=== PATIENT | female | born 1940 | race Two or more races ===

== ENCOUNTER → 2023-09-24 | Outpatient (CLI) | payer OTHER ==
[2023-09-24 09:52] LABS: Basophils # (auto) 0.1 10 ^3/uL (0-0.2); Basophils % (auto) 0.9 % (0.0-2.0); Eosinophils # (auto) 0.1 10 ^3/uL (0-0.8); Eosinophils % (auto) 2.2 % (0.0-7.0); Hematocrit 43.5 % (36.0-46.0); Hemoglobin 14.2 g/dL (12.2-16.2); Lymphocytes # (auto) 1.9 10 ^3/uL (0.4-5.4); Lymphocytes % (auto) 32.8 % (10.0-50.0); Mean Corpuscular Hemoglobin 29.3 pg (28.0-32.0); Mean Corpuscular Hgb Conc. 32.7 g/dL (32.0-36.0); Mean Corpuscular Volume 89.5 fL (80.0-100.0); Monocytes # (auto) 0.6 10 ^3/uL (0-1.3); Monocytes % (auto) 9.6 % (0.0-12.0); Neutrophils # (auto) 3.2 10 ^3/uL (1.6-8.6); Neutrophils % (auto) 54.5 % (37.0-80.0); Nucleated Red Blood Cells % 0.1 %; Red Blood Cells 4.86 10^6/uL (4.0-5.20); Red Cell Distribution Width 14.4 % (11.8-14.3); White Blood Cell 5.9 10^3/uL (4.4-10.8)
[2023-09-24 09:58] LABS: Urine Bacteria FEW /hpf (None Seen); Urine Blood Negative /uL (Negative); Urine Clarity Clear (Clear); Urine Color Light-Yellow (Yellow); Urine Protein, UAD Negative (Negative); Urine Specific Gravity 1.011 (1.001-1.035); Urine Urobilinogen Normal (Negative); Urine WBC 8 /hpf (0 - 5)
[2023-09-24 10:13] LABS: Alanine Aminotransferase 21 U/L (7-40); Albumin 4.4 g/dL (3.2-4.8); Alkaline Phosphatase 94 U/L (46-116); Anion Gap 8 (5-15); Aspartate Aminotransferase 17 U/L (13-40); BUN/Creatinine Ratio 22.7 (10.0-20.0); Blood Urea Nitrogen 17 mg/dL (9-23); Calcium 9.8 mg/dL (8.5-10.1); Carbon Dioxide 25 mmol/L (20-30); Chloride 110 mmol/L (98-107); Glucose 113 mg/dL (74-106); LDL Cholesterol 85 mg/dL (< 100); Potassium 4.3 mmol/L (3.5-5.1); Sodium 143 mmol/L (136-145); Triglycerides 132 mg/dL (< 150)
[2023-09-24 10:14] LABS: Bilirubin, Total 0.5 mg/dL (0.2-1.0); Cholesterol 158 mg/dL (< 200); HDL Cholesterol 52 mg/dL (40-59); Total Protein 7.2 g/dL (5.7-8.2)
[2023-09-24 11:01] LABS: Uric Acid 3.8 mg/dL (3.1-7.8)
[2023-09-24 12:17] LABS: Folate (Folic Acid) 21.1 ng/mL (>5.38)
== END | disposition home or self-care (01) ==
LOC: LAB 09:22
PROVIDERS: ATTEND Internal Medicine
DX: E79.0 Hyperuricemia without signs of inflammatory arthritis and tophaceous disease (principal); D51.9 Vitamin B12 deficiency anemia, unspecified; R82.90 Unspecified abnormal findings in urine; E55.9 Vitamin D deficiency, unspecified; R94.6 Abnormal results of thyroid function studies; R68.89 Other general symptoms and signs; E61.2 Magnesium deficiency; E78.5 Hyperlipidemia, unspecified
CPT/HCPCS: 36415; 80053; 80061; 81001; 82306; 82607; 82746; 83036; 83735; 84443; 84550; 85025; 87086

== ENCOUNTER → 2023-10-10 | Outpatient (CLI) | payer OTHER | END | disposition home or self-care (01) | LOC: XYW 09:28 | PROVIDERS: ATTEND Podiatrist | DX: I77.9 Disorder of arteries and arterioles, unspecified (principal) | CPT/HCPCS: 93925 ==

== ENCOUNTER → 2023-11-07 | Outpatient (CLI) | payer OTHER ==
[2023-11-07 10:45] LABS: Alanine Aminotransferase 22 U/L (7-40); Albumin 4.3 g/dL (3.2-4.8); Alkaline Phosphatase 83 U/L (46-116); Anion Gap 6 (5-15); Aspartate Aminotransferase 16 U/L (13-40); BUN/Creatinine Ratio 20.5 (10.0-20.0); Blood Urea Nitrogen 16 mg/dL (9-23); Calcium 9.9 mg/dL (8.5-10.1); Carbon Dioxide 27 mmol/L (20-30); Chloride 111 mmol/L (98-107); Glucose 133 mg/dL (74-106); Potassium 4.2 mmol/L (3.5-5.1); Sodium 144 mmol/L (136-145)
[2023-11-07 10:46] LABS: Bilirubin, Direct 0.2 mg/dL (<0.3); Bilirubin, Total 0.5 mg/dL (0.2-1.0)
== END | disposition home or self-care (01) ==
LOC: LAB 09:55
PROVIDERS: ATTEND Internal Medicine
DX: E11.65 Type 2 diabetes mellitus with hyperglycemia (principal); R79.89 Other specified abnormal findings of blood chemistry; D51.9 Vitamin B12 deficiency anemia, unspecified; E11.43 Type 2 diabetes mellitus with diabetic autonomic (poly)neuropathy
CPT/HCPCS: 36415; 80048; 80076; 82043; 83036

== ENCOUNTER → 2023-11-14 | Outpatient (CLI) | payer OTHER ==
[2023-11-14 13:24] LABS: Creatinine, Urine 44.61 mg/dL (30.0-125.0)
[2023-11-14 13:51] LABS: Body Surface Area 1.6
[2023-11-14 14:06] LABS: Creatinine Clearance, Urine 53.5 mL/min (75-115)
== END | disposition home or self-care (01) ==
LOC: LAB 12:40
PROVIDERS: ATTEND Internal Medicine
DX: E11.65 Type 2 diabetes mellitus with hyperglycemia (principal); R79.89 Other specified abnormal findings of blood chemistry; D51.9 Vitamin B12 deficiency anemia, unspecified; E11.43 Type 2 diabetes mellitus with diabetic autonomic (poly)neuropathy
CPT/HCPCS: 82575

== ENCOUNTER → 2023-12-03 | Outpatient (CLI) | payer OTHER ==
[2023-12-03 09:22] LABS: Basophils # (auto) 0.1 10 ^3/uL (0-0.2); Eosinophils # (auto) 0.2 10 ^3/uL (0-0.8); Eosinophils % (auto) 2.5 % (0.0-7.0); Hematocrit 41.4 % (36.0-46.0); Lymphocytes # (auto) 2.2 10 ^3/uL (0.4-5.4); Lymphocytes % (auto) 31.4 % (10.0-50.0); Mean Corpuscular Hemoglobin 29.9 pg (28.0-32.0); Mean Corpuscular Hgb Conc. 33.9 g/dL (32.0-36.0); Mean Corpuscular Volume 88.4 fL (80.0-100.0); Monocytes # (auto) 0.6 10 ^3/uL (0-1.3); Neutrophils # (auto) 3.8 10 ^3/uL (1.6-8.6); Neutrophils % (auto) 56.1 % (37.0-80.0); Nucleated Red Blood Cells % 0.1 %; Red Blood Cells 4.68 10^6/uL (4.0-5.20); Red Cell Distribution Width 15.2 % (11.8-14.3); White Blood Cell 6.9 10^3/uL (4.4-10.8)
[2023-12-03 09:24] LABS: Urine Bacteria MANY /hpf (None Seen); Urine Blood Negative /uL (Negative); Urine Clarity Turbid (Clear); Urine Color Light-Yellow (Yellow); Urine Hyaline Cast FEW /lpf (0 - 2); Urine Protein, UAD Negative (Negative); Urine Specific Gravity 1.018 (1.001-1.035); Urine Urobilinogen Normal (Negative); Urine WBC 47 /hpf (0 - 5); Urine pH 5.5 (5.0-9.0)
[2023-12-03 10:18] LABS: Alanine Aminotransferase 21 U/L (7-40); Albumin 4.4 g/dL (3.2-4.8); Alkaline Phosphatase 104 U/L (46-116); Anion Gap 7 (5-15); Aspartate Aminotransferase 15 U/L (13-40); BUN/Creatinine Ratio 30.1 (10.0-20.0); Blood Urea Nitrogen 22 mg/dL (9-23); Calcium 10.1 mg/dL (8.5-10.1); Carbon Dioxide 23 mmol/L (20-30); Chloride 110 mmol/L (98-107); Cholesterol 162 mg/dL (< 200); Glucose 137 mg/dL (74-106); HDL Cholesterol 44 mg/dL (40-59); LDL Cholesterol 87 mg/dL (< 100); Magnesium 1.7 mg/dL (1.6-2.6); Potassium 3.8 mmol/L (3.5-5.1); Sodium 140 mmol/L (136-145); Triglycerides 180 mg/dL (< 150)
[2023-12-03 10:19] LABS: Bilirubin, Total 0.4 mg/dL (0.2-1.0); Total Protein 6.8 g/dL (5.7-8.2)
[2023-12-03 10:56] LABS: Uric Acid 3.7 mg/dL (3.1-7.8)
[2023-12-03 11:22] LABS: Folate (Folic Acid) 11.81 ng/mL (>5.38)
== END | disposition home or self-care (01) ==
LOC: LAB 08:54
PROVIDERS: ATTEND Internal Medicine
DX: R79.89 Other specified abnormal findings of blood chemistry (principal); R73.09 Other abnormal glucose; E61.2 Magnesium deficiency; R68.89 Other general symptoms and signs; R94.6 Abnormal results of thyroid function studies; E55.9 Vitamin D deficiency, unspecified; R82.79 Other abnormal findings on microbiological examination of urine; R82.90 Unspecified abnormal findings in urine; D51.9 Vitamin B12 deficiency anemia, unspecified
CPT/HCPCS: 36415; 80053; 80061; 81001; 82306; 82607; 82746; 83036; 83735; 84443; 84550; 85025; 87086

== ENCOUNTER → 2024-03-02 | Outpatient (CLI) | payer OTHER ==
[2024-03-02 09:09] LABS: Basophils # (auto) 0.1 10 ^3/uL (0-0.2); Basophils % (auto) 0.9 % (0.0-2.0); Eosinophils # (auto) 0.2 10 ^3/uL (0-0.8); Eosinophils % (auto) 2.8 % (0.0-7.0); Hemoglobin 14.2 g/dL (12.2-16.2); Lymphocytes % (auto) 31.7 % (10.0-50.0); Mean Corpuscular Hemoglobin 30.1 pg (28.0-32.0); Mean Corpuscular Hgb Conc. 33.7 g/dL (32.0-36.0); Mean Corpuscular Volume 89.4 fL (80.0-100.0); Monocytes # (auto) 0.6 10 ^3/uL (0-1.3); Monocytes % (auto) 9.1 % (0.0-12.0); Neutrophils # (auto) 3.6 10 ^3/uL (1.6-8.6); Neutrophils % (auto) 55.5 % (37.0-80.0); Nucleated Red Blood Cells % 0.1 %; Platelet Count (auto) 155 10^3/uL (140-450); Red Cell Distribution Width 15.1 % (11.8-14.3); White Blood Cell 6.4 10^3/uL (4.4-10.8)
[2024-03-02 09:47] LABS: Urine Bacteria FEW /hpf (None Seen); Urine Blood Negative /uL (Negative); Urine Clarity Clear (Clear); Urine Color Colorless (Yellow); Urine Protein, UAD Negative (Negative); Urine Specific Gravity 1.008 (1.001-1.035); Urine Urobilinogen Normal (Negative); Urine WBC 10 /hpf (0 - 5); Urine pH 5.5 (5.0-9.0)
[2024-03-02 10:14] LABS: Alanine Aminotransferase 20 U/L (7-40); Albumin 4.5 g/dL (3.2-4.8); Alkaline Phosphatase 98 U/L (46-116); Anion Gap 7 (5-15); Aspartate Aminotransferase 15 U/L (13-40); Bilirubin, Total 0.4 mg/dL (0.2-1.0); Blood Urea Nitrogen 15 mg/dL (9-23); Calcium 10.2 mg/dL (8.7-10.4); Carbon Dioxide 25 mmol/L (20-31); Chloride 110 mmol/L (98-107); Cholesterol 149 mg/dL (< 200); Glucose 141 mg/dL (74-106); HDL Cholesterol 45 mg/dL (40-59); LDL Cholesterol 69 mg/dL (< 100); Magnesium 1.9 mg/dL (1.6-2.6); Potassium 4.2 mmol/L (3.5-5.1); Sodium 142 mmol/L (136-145); Total Protein 7.2 g/dL (5.7-8.2); Triglycerides 194 mg/dL (< 150)
[2024-03-02 10:36] LABS: Uric Acid 4.1 mg/dL (3.1-7.8)
[2024-03-02 11:24] LABS: Folate (Folic Acid) 20.97 ng/mL (>5.38)
== END | disposition home or self-care (01) ==
LOC: LAB 08:43
PROVIDERS: ATTEND Internal Medicine
DX: I10 Essential (primary) hypertension (principal); E11.9 Type 2 diabetes mellitus without complications; E78.2 Mixed hyperlipidemia; Z68.41 Body mass index [BMI] 40.0-44.9, adult
CPT/HCPCS: 36415; 80053; 80061; 81001; 82306; 82607; 82746; 83036; 83735; 84443; 84550; 85025; 87086

== ENCOUNTER → 2024-04-10 | Outpatient (CLI) | payer OTHER | END | disposition home or self-care (01) | LOC: LAB 11:25 | PROVIDERS: ATTEND Psychiatry & Neurology Neurology | DX: G61.81 Chronic inflammatory demyelinating polyneuritis (principal) | CPT/HCPCS: 84155; 84165 ==

== ENCOUNTER → 2024-06-01 | Outpatient (CLI) | payer OTHER ==
[2024-06-01 09:56] LABS: Basophils # (auto) 0 10 ^3/uL (0-0.2); Basophils % (auto) 0.8 % (0.0-2.0); Eosinophils # (auto) 0.1 10 ^3/uL (0-0.8); Eosinophils % (auto) 1.9 % (0.0-7.0); Hematocrit 41.6 % (36.0-46.0); Lymphocytes # (auto) 1.6 10 ^3/uL (0.4-5.4); Lymphocytes % (auto) 32.1 % (10.0-50.0); Mean Corpuscular Hemoglobin 29.5 pg (28.0-32.0); Mean Corpuscular Hgb Conc. 33.6 g/dL (32.0-36.0); Mean Corpuscular Volume 87.8 fL (80.0-100.0); Monocytes # (auto) 0.5 10 ^3/uL (0-1.3); Neutrophils # (auto) 2.8 10 ^3/uL (1.6-8.6); Neutrophils % (auto) 56.2 % (37.0-80.0); Nucleated Red Blood Cells % 0.2 %; Platelet Count (auto) 147 10^3/uL (140-450); Red Blood Cells 4.74 10^6/uL (4.0-5.20); Red Cell Distribution Width 15.6 % (11.8-14.3)
[2024-06-01 10:31] LABS: Alanine Aminotransferase 26 U/L (7-40); Alkaline Phosphatase 98 U/L (46-116); Anion Gap 10 (5-15); Blood Urea Nitrogen 18 mg/dL (9-23); Carbon Dioxide 25 mmol/L (20-31); Potassium 4.5 mmol/L (3.5-5.1); Sodium 144 mmol/L (136-145); Triglycerides 130 mg/dL (< 150)
[2024-06-01 10:32] LABS: LDL Cholesterol 81 mg/dL (< 100)
[2024-06-01 10:33] LABS: Albumin 4.4 g/dL (3.2-4.8); Aspartate Aminotransferase 20 U/L (13-40); Bilirubin, Total 0.4 mg/dL (0.2-1.0); Cholesterol 153 mg/dL (< 200); HDL Cholesterol 53 mg/dL (40-59); Total Protein 7.2 g/dL (5.7-8.2)
[2024-06-01 10:59] LABS: Calcium 10.6 mg/dL (8.7-10.4); Chloride 109 mmol/L (98-107); Glucose 151 mg/dL (74-106)
[2024-06-01 11:06] LABS: Urine Bacteria FEW /hpf (None Seen); Urine Blood Negative /uL (Negative); Urine Clarity Turbid (Clear); Urine Color Light-Yellow (Yellow); Urine Protein, UAD Negative (Negative); Urine Squamous Epithelial Cell FEW /hpf (<5); Urine Urobilinogen Normal (Negative); Urine WBC 8 /hpf (0 - 5); Urine pH 5.5 (5.0-9.0)
[2024-06-01 11:24] LABS: Folate (Folic Acid) 14.03 ng/mL (>5.38)
[2024-06-01 11:35] LABS: Uric Acid 3.9 mg/dL (3.1-7.8)
== END | disposition home or self-care (01) ==
LOC: LAB 08:57
PROVIDERS: ATTEND Internal Medicine
DX: E79.0 Hyperuricemia without signs of inflammatory arthritis and tophaceous disease (principal); E61.2 Magnesium deficiency; R94.6 Abnormal results of thyroid function studies; D51.9 Vitamin B12 deficiency anemia, unspecified; E55.9 Vitamin D deficiency, unspecified; R82.998 Other abnormal findings in urine; R82.79 Other abnormal findings on microbiological examination of urine
CPT/HCPCS: 36415; 80053; 80061; 81001; 82306; 82607; 82746; 83036; 84443; 84550; 85025; 87086

== ENCOUNTER → 2024-08-25 | Outpatient (CLI) | payer OTHER ==
[2024-08-25 14:19] LABS: Basophils # (auto) 0 10 ^3/uL (0-0.2); Basophils % (auto) 0.6 % (0.0-2.0); Eosinophils # (auto) 0.2 10 ^3/uL (0-0.8); Eosinophils % (auto) 2.8 % (0.0-7.0); Hematocrit 42.5 % (36.0-46.0); Hemoglobin 14.3 g/dL (12.2-16.2); Lymphocytes # (auto) 1.9 10 ^3/uL (0.4-5.4); Lymphocytes % (auto) 28.3 % (10.0-50.0); Mean Corpuscular Hemoglobin 29.6 pg (28.0-32.0); Mean Corpuscular Hgb Conc. 33.6 g/dL (32.0-36.0); Mean Corpuscular Volume 88.2 fL (80.0-100.0); Monocytes # (auto) 0.6 10 ^3/uL (0-1.3); Monocytes % (auto) 8.9 % (0.0-12.0); Neutrophils % (auto) 59.4 % (37.0-80.0); Platelet Count (auto) 155 10^3/uL (140-450); Red Blood Cells 4.82 10^6/uL (4.0-5.20); Red Cell Distribution Width 15.4 % (11.8-14.3); White Blood Cell 6.8 10^3/uL (4.4-10.8)
[2024-08-25 14:35] LABS: Partial Thromboplastin Time 27.6 SEC (24.5-34.5); Prothrombin Time 10.6 sec (9.3-11.8)
[2024-08-25 14:56] LABS: Alanine Aminotransferase 29 U/L (7-40); Alkaline Phosphatase 92 U/L (46-116); Anion Gap 10 (5-15); Aspartate Aminotransferase 22 U/L (13-40); Blood Urea Nitrogen 20 mg/dL (9-23); Calcium 10.1 mg/dL (8.7-10.4); Carbon Dioxide 25 mmol/L (20-31); Potassium 4.3 mmol/L (3.5-5.1); Sodium 143 mmol/L (136-145); Total Protein 7.6 g/dL (5.7-8.2)
[2024-08-25 14:57] LABS: Albumin 4.7 g/dL (3.2-4.8); Bilirubin, Total 0.4 mg/dL (0.2-1.0)
[2024-08-25 15:02] LABS: Chloride 108 mmol/L (98-107); Glucose 153 mg/dL (74-106)
--- NOTE | 2024-08-26 16:07 | DVHOP2 ---
Operative Report - 2 Report Details Date: 08/26/24 Preop Diagnosis: Carotid stenosis /TIAs Postop Diagnosis: Successful stenting of right internal carotid artery Surgeon: Juliana Short MD Anesthesiologist: Conscious sedation Anesthesia: Mac, Local ( lidocaine given for insertion sheath. Fentanyl administered) Implant: Carotid stent. Consent: The patient was informed of the risks and benefits of the procedure. These include but are not limited to complications of anesthesia, postoperative infection, incomplete relief of symptoms, recurrence of symptoms, damage to blood vessels, nerves and tendons, deep venous thrombosis, pulmonary embolism and possible need for repeat surgery in the future. Complications: No complications Estimated Blood Loss: 10 cc Findings: Right internal carotid stent of 70% Indications for Surgery: TIAs carotid stenosis Name of Procedure Performed Carotid stenting and angiography Procedure Details Procedure Details: Prior local anesthesia with 2% lidocaine to the right groin and full informed consent obtained the patient was prepped and draped in usual fashion followed by placement of a six [place] sheath into the femoral artery and angiographic eval uation of bilateral carotid arteries with a six [place] JR4. After delineating the anatomy Which consistent with a 70% stenosis of the right internal carotid artery just at the bifurcation,we switched to a eight [place] sheath and an eight [place] multipurpose guide. We then placed a Emboshield into the right internal carotid artery and pre-dilated with a 5 mm Luxul Technologytr[employer] balloon. We then placed a Xact stent into the right internal carotid. this was a nine/7 mm x 30 mm in length. On post dilated with a 5 mm Balloon. This was at five atmospheres. Patient remained hemodynamically stable. Carotid anatomy revealed a 70% stenosis of the right internal carotid. The left carotid has been stented without in stent restenosis. Aortic blood pressure was 130/70. 5 mg of Lopressor instituted keep pressure doubt. Robinul was not required. impression: Successful stenting of the right internal carotid artery as noted. Recommendations continue with dual antiplatelet therapy. Lipid-lowering therapy. Blood pressure control. we will keep overnight for observation.Follow up As an outpatient in 4-10 days. Condition Good Disposition Still a Patient Date of Service: Aug 26, 2024 Billing Provider: JULIANA SHORT Sr., MD Cardiology Common Codes: 53886-VFXQVVF INP/OBS CARE (High) Peripheral Procedures Codes: 66854-CAZVA PLACMNT W/ANGIOPLASTY ( bilateral carotid angiography. Cerebral angiography. Right internal carotid artery stenting.) JULIANA SHORT Sr., MD Aug 26, 2024 16:07
== END | disposition home or self-care (01) ==
LOC: LAB 13:49
PROVIDERS: ATTEND Internal Medicine
DX: Z01.812 Encounter for preprocedural laboratory examination (principal); I65.29 Occlusion and stenosis of unspecified carotid artery
CPT/HCPCS: 36415; 80053; 85025; 85610; 85730

== ENCOUNTER → 2024-10-12 | Outpatient (CLI) | payer OTHER ==
[2024-10-12 10:06] LABS: Basophils # (auto) 0 10 ^3/uL (0-0.2); Basophils % (auto) 0.5 % (0.0-2.0); Eosinophils # (auto) 0.1 10 ^3/uL (0-0.8); Eosinophils % (auto) 2.1 % (0.0-7.0); Hematocrit 40.5 % (36.0-46.0); Hemoglobin 13.4 g/dL (12.2-16.2); Lymphocytes # (auto) 1.4 10 ^3/uL (0.4-5.4); Lymphocytes % (auto) 21.8 % (10.0-50.0); Mean Corpuscular Hemoglobin 28.7 pg (28.0-32.0); Mean Corpuscular Hgb Conc. 33.2 g/dL (32.0-36.0); Mean Corpuscular Volume 86.4 fL (80.0-100.0); Monocytes # (auto) 0.6 10 ^3/uL (0-1.3); Monocytes % (auto) 9.9 % (0.0-12.0); Neutrophils # (auto) 4.3 10 ^3/uL (1.6-8.6); Neutrophils % (auto) 65.7 % (37.0-80.0); Nucleated Red Blood Cells % 0.1 %; Platelet Count (auto) 148 10^3/uL (140-450); Red Blood Cells 4.69 10^6/uL (4.0-5.20); Red Cell Distribution Width 14.9 % (11.8-14.3); White Blood Cell 6.5 10^3/uL (4.4-10.8)
[2024-10-12 10:26] LABS: Alanine Aminotransferase 16 U/L (7-40); Albumin 4.3 g/dL (3.2-4.8); Alkaline Phosphatase 91 U/L (46-116); Anion Gap 8 (5-15); Aspartate Aminotransferase 15 U/L (13-40); BUN/Creatinine Ratio 20.5 (10.0-20.0); Blood Urea Nitrogen 18 mg/dL (9-23); Calcium 9.9 mg/dL (8.7-10.4); Carbon Dioxide 27 mmol/L (20-31); Chloride 106 mmol/L (98-107); LDL Cholesterol 75 mg/dL (< 100); Potassium 4.5 mmol/L (3.5-5.1); Sodium 141 mmol/L (136-145); Total Protein 6.9 g/dL (5.7-8.2); Triglycerides 133 mg/dL (< 150)
[2024-10-12 10:27] LABS: Bilirubin, Total 0.4 mg/dL (0.2-1.0); Cholesterol 137 mg/dL (< 200); HDL Cholesterol 42 mg/dL (40-59)
[2024-10-12 10:29] LABS: Glucose 168 mg/dL (74-106)
[2024-10-12 10:52] LABS: Uric Acid 4.1 mg/dL (3.1-7.8)
[2024-10-12 11:05] LABS: Folate (Folic Acid) 17.77 ng/mL (>5.38)
== END | disposition home or self-care (01) ==
LOC: LAB 09:33
PROVIDERS: ATTEND Internal Medicine
DX: E61.2 Magnesium deficiency (principal); E55.9 Vitamin D deficiency, unspecified; D51.9 Vitamin B12 deficiency anemia, unspecified; E78.49 Other hyperlipidemia; E79.0 Hyperuricemia without signs of inflammatory arthritis and tophaceous disease; R94.6 Abnormal results of thyroid function studies; R82.79 Other abnormal findings on microbiological examination of urine; R82.998 Other abnormal findings in urine; R73.09 Other abnormal glucose; R68.89 Other general symptoms and signs; R82.90 Unspecified abnormal findings in urine
CPT/HCPCS: 36415; 80053; 80061; 82306; 82607; 82746; 83036; 84443; 84550; 85025; 87086

== ENCOUNTER 2024-11-16 09:26 | Outpatient (CLI) | payer OTHER | END 2024-11-16 17:00 | disposition home or self-care (01) | LOC: LAB 09:26 | PROVIDERS: ATTEND Internal Medicine | DX: E78.49 Other hyperlipidemia (principal); E61.2 Magnesium deficiency; E55.9 Vitamin D deficiency, unspecified; R73.09 Other abnormal glucose; R94.6 Abnormal results of thyroid function studies; E79.0 Hyperuricemia without signs of inflammatory arthritis and tophaceous disease; R82.90 Unspecified abnormal findings in urine; R68.89 Other general symptoms and signs; R82.998 Other abnormal findings in urine; D51.9 Vitamin B12 deficiency anemia, unspecified | CPT/HCPCS: 82306; 87086 ==

== ENCOUNTER 2024-12-08 09:06 | Outpatient (CLI) | payer OTHER ==
[~2024-12-08] VITALS: Ht 152.4 cm; Wt 63.5 kg
[~2024-12-08 09:06] MED LIST: CEPH250C PO
[2024-12-08] MEDS: REGADENOSON 0.4 MG/5 ML SYRG IV ONE ×2 (10:53→10:55)
--- NOTE | 2024-12-14 08:50 | DVHSR ---
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 HR Resting HR: 94 bpmMax Heart Rate (APMHR): 136.520901 bpm Max HR Achieved: 111 bpmTarget HR (85% APMHR): 115.599974 bpm % of APMHR: 81.62 Recovery HR: 100 bpm BP Resting BP: 146/69 mmHg Recovery BP: 132/56 mmHg ECG Resting ECG: Sinus Rhythm Clinical Reason for Termination: Completed protocol Stress ECG Conclusion lvef 70% normal perfusion scan no major ischemai noted NM EXAM: Myocardial Perfusion REST/STRESS Imaging Protocol: Rest Tc-99m/Stress Tc-99m 1 day Resting Data Rest SPECT myocardial perfusion imaging was performed in supine position 60 minutes following the int ravenous injection of 11.3 mCi of Tc-99m Sestamibi. Time of rest injection: 0930 Time of rest imagin Administration Route: IV Administration Site: Left Hand Pharmacologic Stress Pharmacologic stress test was performed by injecting Regadenoson 0.4 mg IV push followed by the intra venous injection of 33.1 mCi of Tc-99m Sestamibi. Time of stress injection: 1050 Time of stress imagin Administration Route: IV Administration Site: Left Hand Gated Stress SPECT was performed 65 minutes after stress injection. The images were gated to evaluate regional wall motion and calculate left ventricular ejection fracti on. Nuclear Conclusion lvef 70% normal perfusion scan no major ischemai noted
== END 2024-12-08 17:00 | disposition home or self-care (01) ==
LOC: XYW 09:06
PROVIDERS: ATTEND Internal Medicine
DX: R07.9 Chest pain, unspecified (principal)
CPT/HCPCS: 78452; 93017; A9500; J2785

== ENCOUNTER 2024-12-19 11:57 | Inpatient (IN) | payer OTHER ==
[~2024-12-19] VITALS: Ht 149.9 cm; Wt 61.5 kg
--- NOTE | 2024-12-19 12:04 | ED.PDOC ---
HPI Comments HPI: 84y F who presents to the ED via EMS for chief complaint of chest pain. - pt states she started to have chest pain at 0030 this AM and EMS was brought to [facility], - pt states the pain woke her from her sleep - pt states the pain was in her back, radiating to anterior between the chest, pressure like in nature, rating the pain 5/10, with associated exacerbating factor of pain with inspiration and no relieving factors - EMS gave pt nitro and ASA with mild relief prior to ED arrival - pt [facility] had work up with normal troponin and D- dimer and pt transferred to for insurance purposes and for chest pain work up - pt now in the ED, otherwise denies any other symptoms Past Medical history: B/L Carotid artery stenosis 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 Allergies: iodine and penicillins HPI: Poor Historian. Patient transferred for some [facility] for cardiac evaluation due to insurance. Chest pain started last night midsternal constant without associated symptoms. Her workup has been unremarkable of the other facility. D-dimer and troponins a re negative. Patient arrives to the ED with pain scale 5/10 REVIEW OF SYSTEMS: CONSTITUTIONAL: Denies acute: fever, diaphoresis, chills, HEAD: Denies acute: headache, photophobia Eyes: Denies acute: Double vision, vision loss, eye pain, eye discharge. EARS: Denies acute: tinnitus, hearing loss, ear discharge, ear pain, THROAT: Denies acute: sore throat, swelling, difficulty swallowing , pain with swallowing, change in voice. NECK: Denies acute: neck pain, neck swelling, stiff neck. HEART: Denies acute : , palpitations, LUNGS: Denies acute: SOB, wheezing, cough, hemoptysis ABDOMEN: Denies acute: abdominal pain, Nausea, Vomiting, diarrhea, melena , hematemesis, hematochezia SKIN: Denies acute: rash, redness, lesions, itchiness. EXTREMITIES: Denies acute: calf pain, numbness, tingling, weakness, denies pain in extremity. Denies acute: Low back pain. Neuro: Denies acute: focal neurological deficit, motor or sensory focal neurological deficit, tremors, seizure like activity, confusion, dizziness, change in mental status, loss of bowel or bladder function, cauda equina like symptoms. : Denies acute: dysuria, hematuria, flank pain, increase in urinary frequency. PSYCH: Denies acute: hallucination, suicidal ideation, homicidal ideation. FEMALE: Denies acute: abnormal vaginal bleeding, foul odor, unusual discharge. PHYSICAL EXAM: General: ------neit-eb-ujlaefia--acute distress, awake and alert. Head: normocephalic, atraumatic. Neck: supple, trachea is midline, no swelling. Throat: Normal phonation. Eyes:, no erythema, no purulent discharge, no proptosis, no icterus. Heart: regular rate, regular rhythm, no significant murmur appreciated. Lungs: no apparent respiratory distress, Able to speak in full sentences. No wheezing, no rhonchi, no crackles. No stridors Clear to auscultation bilaterally. Abdomen: non tender to palpation, non distended, soft, no guarding, no rebound, + bowel sounds. Neuro: Awake, Alert, oriented to name, self, situation, follows commands GCS=15. Speech is normal. Skin: no petechia, no purpura, no cyanosis, non-pale, not jaundice. Lower extremities: --trace bilateral - Pitting edema no deformity, no focal swelling, no calf TTP. Makes eye contact. moves all four extremities. Face: no apparent facial droop. ED COURSE: DISCLAIMER: This medical document was created using an electronic medical record system with voice recognition software and computerized dictation system. Although this document has been carefully reviewed, there might still be some phonetic and typographical errors. Occasional wrong-word or "sound-alike" substitutions may have occurred due to the inherent limitations of voice recognition software. These areas are purely typographical due to imperfections of the software programs and do not reflect any compromise in the patient's medical care. Please read the chart carefully and recognize, using context, where these substitutions have occurred. Time Seen by MD: 11:59 Reviewed Notes: Allergies Allergies: Coded Allergies: Iodine (Verified Allergy, Unknown, 12/19/24) Penicillins (Verified Allergy, Unknown, 12/19/24) Home Meds Active Scripts Cephalexin (KEFLEX CAPSULE) 250 Mg Cp, 500 MG PO BID for 10 Days, #20 CAP Prov:ANGEL GUTIERREZ RESIDENT 08/27/24 Information Source: Patient, Emergency Med Personnel Mode of Arrival: EMS Was a procedure done? Was a procedure done?: No CP Differential Dx Differential Diagnosis: N/A Differential Diagnosis: Other (Ddx include but not limitied to gastritis, musculoskeletal pain, radiculopathy, atypical chest pain, dissection, aneurysm, ACS, unstable angina, hiatal hernia, GERD, anxiety, costochondritis, PE, pneumothroax, neoplasm, cardiac ischemia, drug abuse, anemia.) X-Ray, Labs, Meds, VS Vital Signs Date Time Temp Pulse Resp B/P (MAP) Pulse Ox O2 Delivery O2 Flow Rate FiO2 12/19/24 13:43 67 12/19/24 12:56 99.0 69 17 166/65 (98) 95 99.0 12/19/24 12:56 69 17 95 Room Air 12/19/24 11:58 98.0 72 16 132/52 (78) 97 98.0 Lab Test 12/19/24 13:23 12/19/24 12:23 Range/Units Troponin I High Sensitivity 6 5 </=34 ng/L White Blood Count 6.0 4.4-10.8 10^3/uL Red Blood Count 4.55 4.0-5.20 10^6/uL Hemoglobin 12.8 12.2-16.2 g/dL Hematocrit 39.1 36.0-46.0 % Mean Corpuscular Volume 85.9 80.0-100.0 fL Mean Corpuscular Hemoglobin 28.2 28.0-32.0 pg Mean Corpuscular Hemoglobin Concent 32.8 32.0-36.0 g/dL Red Cell Distribution Width 15.6 H 11.8-14.3 % Platelet Count 142 140-450 10^3/uL Mean Platelet Volume 9.3 6.9-10.8 fL Neutrophils (%) (Auto) 69.9 37.0-80.0 % Lymphocytes (%) (Auto) 19.1 10.0-50.0 % Monocytes (%) (Auto) 8.8 0.0-12.0 % Eosinophils (%) (Auto) 1.8 0.0-7.0 % Basophils (%) (Auto) 0.4 0.0-2.0 % Neutrophils # (Auto) 4.2 1.6-8.6 10 ^3/uL Lymphocytes # (Auto) 1.1 0.4-5.4 10 ^3/uL Monocytes # (Auto) 0.5 0-1.3 10 ^3/uL Eosinophils # (Auto) 0.1 0-0.8 10 ^3/uL Basophils # (Auto) 0 0-0.2 10 ^3/uL Nucleated Red Blood Cells 0.0 % Sodium Level 144 136-145 mmol/L Potassium Level 4.4 3.5-5.1 mmol/L Chloride Level 110 H 98-107 mmol/L Carbon Dioxide Level 26 20-31 mmol/L Anion Gap 8 5-15 Blood Urea Nitrogen 24 H 9-23 mg/dL Creatinine 0.75 0.550-1.02 mg/dL Glomerular Filtration Rate Calc 78 >90 mL/min BUN/Creatinine Ratio 32.0 H 10.0-20.0 Serum Glucose 151 H 74-106 mg/dL Calcium Level 9.5 8.7-10.4 mg/dL Total Bilirubin 0.9 0.2-1.0 mg/dL Aspartate Amino Transferase (AST) 1097 H 13-40 U/L Alanine Aminotransferase (ALT) 586 H 7-40 U/L Alkaline Phosphatase 188 H 46-116 U/L B-Type Natriuretic Peptide 39.26 0-100 pg/mL Total Protein 6.2 5.7-8.2 g/dL Albumin 4.2 3.2-4.8 g/dL Lipase 409 H 12-53 U/L Acetaminophen Level 5.0 L 10.0-20.0 UG/ML Hepatitis A IgM Antibody Pending Hepatitis B Surface Antigen Pending Hepatitis B Core IgM Antibody Pending Hepatitis C Antibody Pending [address] [address] Ph: [phone] DIAGNOSTIC IMAGING Diagnostic Imaging Report : [id number] Signed PATIENT: TAYLOR WALLS ACCT: [id number] UNIT: [id number] : 1940 LOC: ER ROOM / BED: / AGE / SEX: 84 / F ADM STATUS: REG ER SERVICE 1415 ORDERING PHYSICIAN: JUSTIN JULIAN DO PROCEDURE(s): ABPL - CT AB PEL WO CON-NO ORAL OR IV REASON: elevated LFT ORDER NUMBER(s): [id number], ACCESSION NUMBER(s): [id number] CT abdomen and pelvis without contrast INDICATION: elevated LFT TECHNIQUE: Serial axial images were performed through the abdomen and pelvis and then reformatted in the sagittal and coronal plane. All CT scans at this medical facility are performed using dose modulation techniques as appropriate to a perf ormed exam including the following: Automated exposure control was utilized; adjustment of the MA and/or KvP according to patient size; and use of iterative reconstruction technique. FINDINGS: Liver and spleen are normal in size without focal mass. No renal masses or hydronephrosis. There is a 1-2 mm stone in the right kidney. No masses or enlargement of the adrenal glands or pancreas. Gallbladder has been removed. There is dilatation of the common bile duct in the tim hepatis tapering to a normal diameter in the pancreatic head. No distention of bowel loops to suggest mechanical obstruction of bowel. The appendix is normal in a ppearance. No free fluid. Within the pelvis, bladder is smooth walled without stones. No abnormal masses or fluid collections. There is inflammatory change in the lower left anterior abdominal wall. There is vascular calcification in the verde of the aorta and iliac arteries. Degenerative changes are present in the spine. IMPRESSION: 1. No acute pathology in the abdomen or pelvis. 2. Note made that study is limited due to lack of IV oral contrast Computed Tomographic Radiation Dosimetry Report: Total CTDI vol = 7.75 mGy Total DLP = 362 mGy-cm Low dose protocols were performed. ATED BY: JANI SMITH MD DICTATED DATE/TIME: 12/19/241457 SIGNED BY: JANI SMITH MD SIGNED DATE/TIME: 12/19/241457 CC: [place] [id number] Ph: [phone] DIAGNOSTIC IMAGING Diagnostic Imaging Report : [id number] Signed PATIENT: TAYLOR WALLS ACCT: [id number] UNIT: [id number] : 1940 LOC: ER ROOM / BED: / AGE / SEX: 84 / F ADM STATUS: REG ER SERVICE 1201 ORDERING PHYSICIAN: JUSTIN JULIAN DO PROCEDURE(s): CXRP - CHEST PORTABLE REASON: CP ORDER NUMBER(s): [id number], ACCESSION NUMBER(s): [id number] CHEST RADIOGRAPH Indication: CP Technique: Single frontal view of the chest was obtained COMPARISON: None FINDINGS: Lines and Tubes: None Lungs: Clear Pleura: No effusion. No pneumothorax. Cardiomediastinal contours: Unremarkable Bones: Unremarkable IMPRESSION: No acute disease. ATED BY: DUSTY SANCHEZ MD DICTATED DATE/TIME: 12/19/241227 SIGNED BY: DUSTY SANCHEZ MD SIGNED DATE/TIME: 12/19/241227 CC: Time of 1ST Reevaluation: 00:00 Reevaluation 1ST: N/A Patient Education/Counseling: Diagnosis, Treatment Family Education/Counseling: No Family Present Comments MDM: patient presented with the above HPI.---chest pain---workup was initiated. patient was found with the above mentioned diagnosis. the following medications were ordered: please refer to order lists of meds and tests obtained by myself Dr. Julian. Patient ED course and VS have been stabilized. Patient has been reassessed in the ED and remained in a stable condition. Pertinent incidental findings were discussed with the patient and/or family. Patient/family voices understanding and is agreeable with plan. Patient has been observed in the ED adequate length of time to insure improvement/stability. Escalation of care considered: Consideration of escalation to observation or admission Our workup revealed that the etiology of her symptoms are GI in origin. Patient was found with elevated LFTs and acute pancreatitis. CT scan of the abdomen and pelvis was obtained. Patient was ADMITTED to the medicine team for further evaluation and treatment of their presentation. All the reports of any imaging studies that were ordered by myself were reviewed by myself. SEPSIS Sepsis Screen Physician Orders Collection Development Librarian (12/19/24 ) Chest Portable (12/19/24 12:01) Electrocardigram (12/19/24 13:01) Electrocardigram (12/19/24 15:01) Ct Ab Pel Wo Con-No Oral Or Iv (12/19/24 14:15) Vital Signs Date Time Temp Pulse Resp B/P (MAP) Pulse Ox O2 Delivery O2 Flow Rate FiO2 12/19/24 13:43 67 12/19/24 12:56 99.0 69 17 166/65 (98) 95 99.0 12/19/24 12:56 69 17 95 Room Air 12/19/24 11:58 98.0 72 16 132/52 (78) 97 98.0 Laboratory Tests Test 12/19/24 12:23 White Blood Count 6.0 10^3/uL (4.4-10.8) Departure 1 Departure Time of Disposition: 12:35 Impression: Primary Impression: Chest pain Additional Impressions: Elevated LFTs Acute pancreatitis Disposition: ADMITTED INPATIENT Admit to: Tele Condition: Guarded Discharged With: Self Critical Care Note Critical Care Time?: Yes (45 min-critical care time only) Heart Score Heart Score: Heart Score Response (Comments) Value History Moderate Suspicious 1 EKG Normal 0 Age >65 2 Risk Factors >3 or Hx ASHD 2 Troponin Normal limit 0 Total 5 I personally scribed for JUSTIN JULIAN DO ([email or web address]) on 12/19/24 at 12:04. Electronically submitted by Feli Saxena ([email or web address]). I personally scribed for JUSTIN JULIAN DO ([email or web address]) on 12/19/24 at 12:27. Electronically submitted by Feli Saxena ([email or web address]). I personally scribed for JUSTIN JULIAN DO ([email or web address]) on 12/19/24 at 13:21. Electronically submitted by Feli Saxena ([email or web address]). I personally scribed for JUSTIN JULIAN DO ([email or web address]) on 12/19/24 at 16:28. Electronically submitted by Feli Saxena ([email or web address]). I personally scribed for JUSTIN JULIAN DO ([email or web address]) on 12/19/24 at 18:01. Electronically submitted by Feli Saxena ([email or web address]). JUSTIN JULIAN DO Dec 19, 2024 12:04
--- NOTE | 2024-12-19 12:30 | DVH ---
CHEST RADIOGRAPH Indication: CP Technique: Single frontal view of the chest was obtained COMPARISON: None FINDINGS: Lines and Tubes: None Lungs: Clear Pleura: No effusion. No pneumothorax. Cardiomediastinal contours: Unremarkable Bones: Unremarkable IMPRESSION: No acute disease.
[2024-12-19 12:42] LABS: Hematocrit 39.1 % (36.0-46.0); Hemoglobin 12.8 g/dL (12.2-16.2); Mean Corpuscular Hemoglobin 28.2 pg (28.0-32.0); Mean Corpuscular Volume 85.9 fL (80.0-100.0); Nucleated Red Blood Cells % 0.0 %
[2024-12-19 12:55] LABS: Albumin 4.2 g/dL (3.2-4.8); Anion Gap 8 (5-15); BUN/Creatinine Ratio 32.0 (10.0-20.0); Bilirubin, Total 0.9 mg/dL (0.2-1.0); Calcium 9.5 mg/dL (8.7-10.4); Carbon Dioxide 26 mmol/L (20-31); Potassium 4.4 mmol/L (3.5-5.1); Sodium 144 mmol/L (136-145); Total Protein 6.2 g/dL (5.7-8.2)
[2024-12-19 12:56] LABS: Alanine Aminotransferase 586 U/L (7-40); Alkaline Phosphatase 188 U/L (46-116); Blood Urea Nitrogen 24 mg/dL (9-23); Chloride 110 mmol/L (98-107); Glucose 151 mg/dL (74-106)
[2024-12-19] MEDS: NITROGLYCERIN 0.4 MG SL TAB SL ONE (13:04)
--- NOTE | 2024-12-19 14:38 | DVHHP2 ---
History of Present Illness Reason for Visit: chest pain History of Present Illness 84-year-old female with past medical history of hypertension, anemia, diabetes, and recent cardiovascular intervention (GLASS MAKER/stenting of the internal carotid artery by Dr. 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 According to the patient, she was initially evaluated at [place] for chest pain where she was told everything was stable but was transferred to [facility] for evaluation by her wind farm engineer, Dr. Short. The chest pain is described as starting in the back and radiating to the front, associated with shortness of breath, but symptoms have improved since ED arrival. She states she saw Dr. Short approximately three weeks ago, at which time a stress test was performed, though she has not received the results. She denies caffeine use and states her energy and appetite have been reduced. On ED evaluation, CBC was unremarkable, troponins negative, but AST was elevated at 1097, ALT at 568, and total bilirubin at 0.9 . Comparison with labs from August 2024 shows liver enzymes were previously within normal limits. No known history of liver disease or hepatotoxic medication use. Workup for hepatic dysfunction is underway. will admit and hold lipitor and tylenol ordered gi and cards consult Past Medical History See HPI above Past Surgical History See HPI above Family History Reviewed, non-contributory to the management of this case. Past Social History The patient lives at home, denies smoking, alcohol or illicit drugs abuse. Review of Systems Constitutional: No: Fever, Chills, Sweats, Weakness, Malaise, Other Eyes: No: Pain, Vision change, Conjunctivae inflammation, Eyelid inflammation, Other, Redness ENT: No: Ear pain, Ear discharge, Nose pain, Nose discharge, Nose congestion, Mouth pain, Mouth swelling, Throat pain, Throat swelling, Other Respiratory: Shortness of breath; No: Cough, Dry, SOB with excertion, Wheezing, Hemoptysis, Pleuritic Pain, Sputum, Wheezing, Other Cardiovascular: Chest Pain; No: Palpitations, Orthopnea, Paroxysmal Noc. Dyspnea, Edema, Lt Headedness, Other Gastrointestinal: No: Nausea, Vomiting, Abdominal Pain, Diarrhea, Constipation, Melena, Hematochezia, Other Genitourinary: No Dysuria, No Frequency, No Incontinence, No Hematuria, No Retention, No Other Musculoskeletal: No: other, neck pain, shoulder pain, arm pain, back pain, hand pain, leg pain, foot pain Skin: No: Rash, Lesions, Jaundice, Bruising, Other Neurological: No: Weakness, Numbness, Incoordination, Change in speech, Confusion, Seizures, Other Allergies: Coded Allergies: Iodine (Verified Allergy, Unknown, 12/19/24) Penicillins (Verified Allergy, Unknown, 12/19/24) Exam Vital Signs Vital Signs Date Time Temp Pulse Resp B/P (MAP) Pulse Ox O2 Delivery O2 Flow Rate FiO2 12/19/24 13:43 67 12/19/24 12:56 99.0 17 166/65 (98) 95 99.0 12/19/24 12:56 Room Air General Appearance: Alert, Oriented X3, Cooperative, No acute distress HEENT: Atraumatic, PERRLA, EOMI, Mucous membr. moist/pink Respiratory: Clear to auscultation, Normal air movement Cardiovascular: Regular rate, Normal S1, Normal S2, No murmurs Abdominal: Normal bowel sounds, Soft, No tenderness, No hepatospenomegaly, No masses, Other (No jaundice seen) Extremities: No clubbing, No cyanosis, No edema, Normal pulses, No tenderness/ swelling Skin: No rashes, No breakdown, No significant lesion Neuro: Normal gait, Normal speech, Strength at 5/5 X4 ext, Normal tone, Sensation intact, Cranial nerves 3-12 NL Psych/Mental Status: Mental status NL, Mood NL Labs/Xrays Chest x-ray unremarkable I reviewed labs, imaging CT scan abdomen pelvis, EKG and all diagnostic studies on this patient from ED records and the medical chart Labs Test 12/19/24 13:23 12/19/24 12:23 Range/Units Troponin I High Sensitivity 6 </=34 ng/L White Blood Count 6.0 4.4-10.8 10^3/uL Red Blood Count 4.55 4.0-5.20 10^6/uL Hemoglobin 12.8 12.2-16.2 g/dL Hematocrit 39.1 36.0-46.0 % Mean Corpuscular Volume 85.9 80.0-100.0 fL Mean Corpuscular Hemoglobin 28.2 28.0-32.0 pg Mean Corpuscular Hemoglobin Concent 32.8 32.0-36.0 g/dL Red Cell Distribution Width 15.6 H 11.8-14.3 % Platelet Count 142 140-450 10^3/uL Mean Platelet Volume 9.3 6.9-10.8 fL Neutrophils (%) (Auto) 69.9 37.0-80.0 % Lymphocytes (%) (Auto) 19.1 10.0-50.0 % Monocytes (%) (Auto) 8.8 0.0-12.0 % Eosinophils (%) (Auto) 1.8 0.0-7.0 % Basophils (%) (Auto) 0.4 0.0-2.0 % Neutrophils # (Auto) 4.2 1.6-8.6 10 ^3/uL Lymphocytes # (Auto) 1.1 0.4-5.4 10 ^3/uL Monocytes # (Auto) 0.5 0-1.3 10 ^3/uL Eosinophils # (Auto) 0.1 0-0.8 10 ^3/uL Basophils # (Auto) 0 0-0.2 10 ^3/uL Nucleated Red Blood Cells 0.0 % Sodium Level 144 136-145 mmol/L Potassium Level 4.4 3.5-5.1 mmol/L Chloride Level 110 H 98-107 mmol/L Carbon Dioxide Level 26 20-31 mmol/L Anion Gap 8 5-15 Blood Urea Nitrogen 24 H 9-23 mg/dL Creatinine 0.75 0.550-1.02 mg/dL Glomerular Filtration Rate Calc 78 >90 mL/min BUN/Creatinine Ratio 32.0 H 10.0-20.0 Serum Glucose 151 H 74-106 mg/dL Calcium Level 9.5 8.7-10.4 mg/dL Total Bilirubin 0.9 0.2-1.0 mg/dL Aspartate Amino Transferase (AST) 1097 H 13-40 U/L Alanine Aminotransferase (ALT) 586 H 7-40 U/L Alkaline Phosphatase 188 H 46-116 U/L B-Type Natriuretic Peptide 39.26 0-100 pg/mL Total Protein 6.2 5.7-8.2 g/dL Albumin 4.2 3.2-4.8 g/dL Lipase 409 H 12-53 U/L SEPSIS Sepsis Screen Date sepsis recognized/suspect: Dec 19, 2024 Time Sepsis recognized/suspect: 1200 Recent Procedure: No On Antibiotic Therapy: No Respiratory Rate >20: No Heart Rate >90: No Temp<36 C (96.8 F) or >38.3 C: No SBP <90 or MAP <65 mmHG: No New Acute Mental Status Change: No Is the patient on CPAP, BIPAP,: No Physician Orders Home Health Care Worker (12/19/24 ) Chest Portable (12/19/24 12:01) Electrocardigram (12/19/24 12:01) Troponin-I Hs (12/19/24 15:01) Electrocardigram (12/19/24 13:01) Electrocardigram (12/19/24 15:01) Ct Ab Pel Wo Con-No Oral Or Iv (12/19/24 14:15) Vital Signs Date Time Temp Pulse Resp B/P (MAP) Pulse Ox O2 Delivery O2 Flow Rate FiO2 12/19/24 13:43 67 12/19/24 12:56 99.0 69 17 166/65 (98) 95 99.0 12/19/24 12:56 69 17 95 Room Air 12/19/24 11:58 98.0 72 16 132/52 (78) 97 98.0 Laboratory Tests Test 12/19/24 12:23 White Blood Count 6.0 10^3/uL (4.4-10.8) Assessment/Plan Assessment/Plan 84 yr old female with Elevated transaminases with acute chest pain and dyspnea; rule out ischemia vs hepatotoxicity vs non-cardiac cause. ASSESSMENT & PLAN acute Chest Pain, Improved Troponins negative x2 Recent cardiology stress test results 12/08/24 no ischemia noted Monitor telemetry Cardiology to follow (Dr. Short) Consider echo if not recent Monitor for recurrent symptoms severe Transaminitis AST 1097, ALT 568, bili 0.9 Review medications for hepatotoxic agents hold lipitor for now Hepatitis panel, acetaminophen level, PT/INR, and abdominal ultrasound ordered Hold any hepatotoxic medications GI consult fu recs unclear etiology Hypertension Continue home regimen Monitor BP during hospitalization Type 2 Diabetes Mellitus Check daily FSBS Monitor for signs of DKA/HHS if symptomatic Anemia CBC unremarkable on admission chronic problems Hypertension Type 2 diabetes mellitus Anemia Recent carotid artery GLASS MAKER/stent FEN / PPx Fluids: IV hl Electrolytes: Monitor CMP daily Nutrition: Diabetic diet DVT Prophylaxis: SCDs, no anticoagulation unless otherwise indicated GI Prophylaxis: PPI if on steroids or anticoagulants Disposition Admit to [facility] for monitoring of liver enzymes, evaluation of chest pain, and follow-up of recent cardiovascular intervention. Await abdominal ultrasound and cardiology recommendations. Plan discussed with: Patient Date of Service: Dec 19, 2024 Billing Provider: ANISA QUIJANO DNP Common Visit Codes: [id number] INP/OBS CARE (HIGH) ANISA QUIJANO DNP Dec 19, 2024 14:38
[2024-12-19] MEDS ORDERED: MORPHINE SULFATE 4 MG/ML SYR/VIAL IV PRN (14:45)
[2024-12-19] MEDS ORDERED: NITROGLYCERIN 0.4 MG SL TAB SL PRN ×2 (14:45)
[2024-12-19] MEDS ORDERED: ACETAMINOPHEN 325 MG TAB PO PRN (14:45)
[2024-12-19] MEDS ORDERED: ONDANSETRON HCL 4 MG/2 ML VIAL IV PRN (14:45)
[2024-12-19] MEDS ORDERED: ATORVASTATIN 20 MG TAB PO NR (15:00)
--- NOTE | 2024-12-19 15:00 | DVH ---
CT abdomen and pelvis without contrast INDICATION: elevated LFT TECHNIQUE: Serial axial images were performed through the abdomen and pelvis and then reformatted in the sagittal and coronal plane. All CT scans at this medical facility are performed using dose modula tion techniques as appropriate to a performed exam including the following: Automated exposure contro l was utilized; adjustment of the MA and/or KvP according to patient size; and use of iterative recon struction technique. FINDINGS: Liver and spleen are normal in size without focal mass. No renal masses or hydronephrosis. There is a 1-2 mm stone in the right kidney. No masses or enlargement of the adrenal glands or pancr eas. Gallbladder has been removed. There is dilatation of the common bile duct in the tim hepatis t apering to a normal diameter in the pancreatic head. No distention of bowel loops to suggest automotive mechanical engineer al obstruction of bowel. The appendix is normal in appearance. No free fluid. Within the pelvis, blad shadi is smooth walled without stones. No abnormal masses or fluid collections. There is inflammatory c hange in the lower left anterior abdominal wall. There is vascular calcification in the verde of the aorta and iliac arteries. Degenerative changes are present in the spine. IMPRESSION: 1. No acute pathology in the abdomen or pelvis. 2. Note made that study is limited due to lack of IV oral contrast Computed Tomographic Radiation Dosimetry Report: Total CTDI vol = 7.75 mGy Total DLP = 362 mGy-cm Low dose protocols were performed.
[2024-12-19] MEDS: fentaNYL CITRATE 100 MCG/2 ML VL IV ONE (15:14)
[2024-12-19] MEDS: ATORVASTATIN 20 MG TAB PO ONE (15:30)
[2024-12-19 17:00] VITALS: BP 153/74; PULSE 72; RESP 18; TEMP 97.9; O2SAT 94
[2024-12-19 17:19] VITALS: PULSE 75; RESP 16; O2SAT 94
[2024-12-19] MEDS ORDERED: DEXTROSE (50%) 50ML SYRG IV PRN (18:15)
--- NOTE | 2024-12-19 18:40 | DVH ---
INDICATION: severe transaminitis TECHNIQUE: Multiple real-time sonographic images of the abdomen were obtained. COMPARISON: None FINDINGS: The liver is echogenic consistent with steatosis The liver measures 15.6 cm. No intrahepat ic biliary ductal dilatation is noted. Surgically removed The common duct measures 14.1 mm and is unremarkable. No pericholecystic fluid i s noted. The right kidney measures 9.1 cm. No hydronephrosis. The pancreas is not well visualized due to obscuration from bowel gas. IMPRESSION: 1. Gallbladder has been surgically removed. 2. Liver measures 15.6 cm with findings consistent with steatosis.
--- NOTE | 2024-12-19 18:47 | ECG ---
[facility] Test Date: 2024-12-19 Test Time: 13:43:45 Pat Name: TAYLOR WALLS Department: ED Room: 0215T Gender: F [employer] Administrator: efe : [id number] Requested By: JUSTIN JULIAN Order Number: [id number] Reading MD: Sp Short Measurements Intervals [place] Rate: 67 P: 68 [place]: 178 QRS: 68 QRSD: 100 T: 52 QT: 418 QTc: 442 Interpretive Statements Sinus rhythm Electronically Signed On 12-23-2024 17:47:19 PDT by Sp Short Please click the below link to view image of tracing.
[2024-12-19 20:00] VITALS: PULSE 78; RESP 18
[2024-12-19 21:00] VITALS: BP 129/68; PULSE 75; RESP 18; TEMP 97.8; O2SAT 93
[2024-12-19] MEDS: ACCU-CHEK COMFORT CURVE STRIP VI SCH (21:33)
[2024-12-19] MEDS: InsuLIN REG 1unit/0.01ml Soln (100units/ml) SC SCH (21:38)
[2024-12-20] VITALS (9 sets, daily range): BP systolic 131–148; BP diastolic 53–78; PULSE 79–92; RESP 17–18; TEMP 97.9–98.4; O2SAT 93–97
[2024-12-20 07:31] LABS: Hematocrit 39.4 % (36.0-46.0); Hemoglobin 12.9 g/dL (12.2-16.2); Mean Corpuscular Hemoglobin 28.7 pg (28.0-32.0); Mean Corpuscular Volume 87.5 fL (80.0-100.0); Nucleated Red Blood Cells % 0.0 %
[2024-12-20 07:38] LABS: Albumin 4.0 g/dL (3.2-4.8); Anion Gap 9 (5-15); BUN/Creatinine Ratio 25.3 (10.0-20.0); Bilirubin, Total 0.5 mg/dL (0.2-1.0); Blood Urea Nitrogen 19 mg/dL (9-23); Calcium 9.8 mg/dL (8.7-10.4); Carbon Dioxide 24 mmol/L (20-31); Glucose 90 mg/dL (74-106); Potassium 4.4 mmol/L (3.5-5.1); Sodium 142 mmol/L (136-145); Total Protein 6.2 g/dL (5.7-8.2)
[2024-12-20 07:46] LABS: Alanine Aminotransferase 600 U/L (7-40); Alkaline Phosphatase 193 U/L (46-116); Chloride 109 mmol/L (98-107)
[2024-12-20] MEDS: DOCUSATE SOD 100 MG CAP PO SCH (09:34)
[2024-12-20 10:19] LABS: Triglycerides 121 mg/dL (< 150)
[2024-12-20 10:21] LABS: Cholesterol 120 mg/dL (< 200); HDL Cholesterol 44 mg/dL (40-59)
--- NOTE | 2024-12-20 13:05 | DVHINCON2 ---
Date Seen: Dec 20, 2024 Referring Physician GERRY Capps Reason for Consultation Chest pain History of Present Illness 84-year-old female presents to the emergency department from an outside hospital ([place]) with complaint of chest pain. The patient reports waking up two days ago with mid back pain that radiated to the chest, described as pressure- like in nature, and associated with left arm tingling. She denies associated symptoms such as shortness of breath, nausea, or syncope. The patient recently underwent a stress test on 12/05 2024 with her wool hat finisher, Dr. Mora, which reportedly showed no evidence of ischemia. On arrival, EKG revealed normal sinus rhythm without signs of acute ischemia, and serial troponins were negative. Of note, liver enzymes were found to be elevated during this admission. Other past medical history includes diabetes, CVA, hypertension, hyperlipidemia, bilateral carotid stenosis s/p carotid stenting. Past Medical History As stated in HPI Past Surgical History As stated in HPI Family History: FH: heart disease G8 FATHER Hypertension G8 FATHER Family History Reviewed, non-contributory to the management of this case. Social History The patient lives at home, denies smoking, alcohol or illicit drugs abuse. Allergies: Coded Allergies: Iodine (Verified Allergy, Unknown, 12/19/24) Penicillins (Verified Allergy, Unknown, 12/19/24) Home Meds Active Scripts Cephalexin (KEFLEX CAPSULE) 250 Mg Cp, 500 MG PO BID for 10 Days, #20 CAP Prov:ANGEL GUTIERREZ RESIDENT 08/27/24 Current Medications Current Medications Medications (Trade) Dose Ordered Sig/Josefina Route PRN Reason Start Time Stop Time Status Last Admin Aspirin 81 mg DAILY PO 12/19/24 14:51 12/20/24 09:34 Morphine Sulfate 2 mg Q30MP PRN IV FOR CHEST PAIN 12/19/24 14:45 Acetaminophen (Tylenol Tablet) 325 mg Q4HP PRN PO FOR HEADACHE 12/19/24 14:45 12/19/24 18:01 DC Docusate Sodium (Colace Capsule) 100 mg DAILY PO 12/20/24 10:00 12/20/24 09:34 Nitroglycerin (Ntrostat Sublingual) 0.4 mg Q5MINP PRN SL FOR CHEST PAIN 12/19/24 14:45 12/19/24 14:51 DC Ondansetron HCl (Zofran) 4 mg Q4HP PRN IV NAUSEA / VOMITING 12/19/24 14:45 Nitroglycerin (Ntrostat Sublingual) 0.4 mg Q5MINP PRN SL FOR CHEST PAIN 12/19/24 14:45 Atorvastatin Calcium (Lipitor) 40 mg ONCE PO 12/19/24 15:00 12/19/24 18:01 DC Diagnostic Test (Pha) (Accu-Chek Comfort Curve T) 1 strip ACHS 12/19/24 22:00 12/20/24 11:47 Insulin Human Regular (InsuLIN R) ACHS SC 12/19/24 22:00 12/20/24 11:48 Dextrose 50 ml UD PRN IV Blood Sugar LESS THAN 60 12/19/24 18:15 Review of Systems Constitutional: No symptom reported Ears, Nose, & Throat: No symptom reported Eyes: No symptom reported Neurological: No symptoms reported Pulmonary/Respiratory: No symptom reported Cardiovascular: Chest pain, left arm tingling, denies palpitations, syncope, or leg swelling Gastrointestinal: No symptom reported Genitourinary: No symptom reported Musculoskeletal: No symptom reported Skin: No symptom reported Psychiatric: No symptom reported Endocrine: No symptom reported Hemotologic/Lymphatic: No symptom reported Vital Signs Vital Signs Date Time Temp Pulse Resp B/P (MAP) Pulse Ox O2 Delivery O2 Flow Rate FiO2 12/20/24 08:52 98.4 82 18 136/68 (90) 95 98.4 12/20/24 08:29 Room Air* 0 21 Physical Exam INITIAL VITAL SIGNS: Reviewed by me GENERAL: Alert and interactive. No acute distress. HEAD: Head is normocephalic and atraumatic. EYES: EOMI, PERRL. No scleral icterus. No conjunctival injection. ENT: Moist mucous membranes. NECK: Supple, No masses, Full range of motion. RESPIRATORY: No tachypnea. Clear breath sounds bilaterally. No wheezing, rales, rhonchi. CV: Regular rate and rhythm. No murmurs, no edema GI/: Active bowel sounds, soft, nondistended, nontender. No guarding. No rebound. No masses. No CVA tenderness. INTEGUMENTARY: Warm and dry. No obvious rashes. NEUROLOGIC: Alert and oriented. Face is symmetric. Speech is normal. Moves all extremities equally. Labs/Diagnostic Data Labs Test 12/20/24 11:20 12/20/24 06:03 12/19/24 12:23 Range/Units POC Glucose 183 H 70-106 mg/dl White Blood Count 4.4 # 4.4-10.8 10^3/uL Red Blood Count 4.50 4.0-5.20 10^6/uL Hemoglobin 12.9 12.2-16.2 g/dL Hematocrit 39.4 36.0-46.0 % Mean Corpuscular Volume 87.5 80.0-100.0 fL Mean Corpuscular Hemoglobin 28.7 28.0-32.0 pg Mean Corpuscular Hemoglobin Concent 32.8 32.0-36.0 g/dL Red Cell Distribution Width 15.5 H 11.8-14.3 % Platelet Count 132 L 140-450 10^3/uL Mean Platelet Volume 9.4 6.9-10.8 fL Neutrophils (%) (Auto) 60.1 37.0-80.0 % Lymphocytes (%) (Auto) 25.5 10.0-50.0 % Monocytes (%) (Auto) 9.3 0.0-12.0 % Eosinophils (%) (Auto) 4.3 0.0-7.0 % Basophils (%) (Auto) 0.8 0.0-2.0 % Neutrophils # (Auto) 2.6 1.6-8.6 10 ^3/uL Lymphocytes # (Auto) 1.1 0.4-5.4 10 ^3/uL Monocytes # (Auto) 0.4 0-1.3 10 ^3/uL Eosinophils # (Auto) 0.2 0-0.8 10 ^3/uL Basophils # (Auto) 0 0-0.2 10 ^3/uL Nucleated Red Blood Cells 0.0 % Sodium Level 142 136-145 mmol/L Potassium Level 4.4 3.5-5.1 mmol/L Chloride Level 109 H 98-107 mmol/L Carbon Dioxide Level 24 20-31 mmol/L Anion Gap 9 5-15 Blood Urea Nitrogen 19 9-23 mg/dL Creatinine 0.75 0.550-1.02 mg/dL Glomerular Filtration Rate Calc 78 >90 mL/min BUN/Creatinine Ratio 25.3 H 10.0-20.0 Serum Glucose 90 74-106 mg/dL Calcium Level 9.8 8.7-10.4 mg/dL Total Bilirubin 0.5 0.2-1.0 mg/dL Aspartate Amino Transferase (AST) 519 H 13-40 U/L Alanine Aminotransferase (ALT) 600 H 7-40 U/L Alkaline Phosphatase 193 H 46-116 U/L Troponin I High Sensitivity 4 </=34 ng/L Total Protein 6.2 5.7-8.2 g/dL Albumin 4.0 3.2-4.8 g/dL Triglycerides Level 121 < 150 mg/dL Cholesterol Level 120 < 200 mg/dL LDL Cholesterol 59 < 100 mg/dL HDL Cholesterol 44 40-59 mg/dL Thyroid Stimulating Hormone (TSH) 1.53 0.55-4.78 uIU/mL B-Type Natriuretic Peptide 39.26 0-100 pg/mL Lipase 409 H 12-53 U/L Acetaminophen Level 5.0 L 10.0-20.0 UG/ML PROCEDURE(s): CXRP - CHEST PORTABLE REASON: CP ORDER NUMBER(s): [id number], ACCESSION NUMBER(s): [id number] CHEST RADIOGRAPH Indication: CP Technique: Single frontal view of the chest was obtained COMPARISON: None FINDINGS: Lines and Tubes: None Lungs: Clear Pleura: No effusion. No pneumothorax. Cardiomediastinal contours: Unremarkable Bones: Unremarkable IMPRESSION: No acute disease. Assessment Atypical chest pain * Likely noncardiac in origin given negative serial troponins, reassuring EKG, and recent negative stress test Hypertension Hyperlipidemia Type 2 diabetes Elevated liver enzyme hx of CVA Carotid stenosis s/p stenting Plan/Recommendation (Dr. Mora ): * Chest pain protocol--monitor on Telemetry * Echocardiogram * Check TSH, lipid panel, A1c * Elevated liver enzymes per hospitalist recommendation/workup If echocardiogram remains unremarkable, the patient may follow-up with outpatient wool hat finisher for further ischemic evaluation and ongoing symptom management. This medical document was created using an electronic medical record system with voice recognition software and computerized dictation system. Although this document has been carefully reviewed, there might still be some phonetic and typographical errors. Occasional wrong-word or ``sound-alike substitutions may have occurred due to the inherent limitations of voice recognition software. These areas are purely typographical due to imperfections of the software programs and do not reflect any compromise in the patient's medical care. Please read the chart carefully and recognize, using context, where these substitutions have occurred. Plan discussed with: Patient Plan discussed with: Patient NYHA Physical activity limitations: NA Date of Service: Dec 20, 2024 Billing Provider: JULIANA MORA Sr., MD Cardiology Common Codes: CONSULT ONLY Cardiology Consultation Codes: [id number] CONSULT <45MIN MANNIE SANDS BUSINESS BANKING RELATIONSHIP MANAGER Dec 20, 2024 13:04
--- NOTE | 2024-12-20 17:04 | DVHSR ---
APPROVED REPORT EXAM: Two-dimensional and M-mode echocardiogram with Doppler, color Doppler and Bubble Study. Blood Pressure: 136/68 mmHg INDICATION Chest Pain RISK FACTORS Height: 4'11", Weight: 138 DIMENSIONS LVDd3.4 (3.8-5.7cm)LA (2D)3.2 (1.9-4.0cm)Aortic Root2.6 (2.0-3.7cm) LVDs2.3 (2.5-4.0cm)LA (MM) (1.9-4.0cm)Aortic Cusp Exc1.5 (1.5-2.0cm) EF (%) 60.0 (55-70%)Rt. Atrium3.2 (1.9-4.0cm)Asc. Aorta cm IVSd1.3 (0.7-1.1cm)RV (D)3.4 (1.8-2.4cm) PWd1.1 (0.7-1.1cm) Mitral Valve MitralMitral Stenosis E wave0.89m/sMV Mean GR.mmHg A wave1.15m/sMV Peak GR.mmHg E/A ratio0.82D MVAcm2 DECEL [id number] 1/2 Timems Aortic Valve Aortic ValveAortic Stenosis V11.05m/Maritza Mean GR.6mmHg V21.67m/Maritza Peak GR.11mmHg LVOT Diameter2.0 (1.8-2.4cm)Doppler AVA1.97cm2 Pulmonic Valve V20.84m/s Tricuspid Valve TR Velocity2.51m/s [id number] ATRIA Injection of bubbles documented no interatrial shunt. Other Information Technically limited study due to body habitus and patient position. Conclusion Technically difficult study. Difficult acoustic windows. Chamber sizes appear to be within normal limits however there appears to be concentric LVH. Mild lef t atrial enlargement. Valves appear to be structurally normal. EF of 65% with normal RV function. Doppler reveals mild TR. No pericardial effusion masses or vegetations discernible.
--- NOTE | 2024-12-20 21:00 | DVHINCON2 ---
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 GI team consulted for elevated liver enzymes. Denies salicylate/herbal supplement intake, no new meds recently or antibiotic intake or alcohol abuse. No known hx of elevated liver enzymes or fhx of autoimmune disease per pt. Takes Tylenol extra strength, 3-4 pills per day. Denies abd pain/N/V/fever/chills/diarrhea Past Medical History Reviewed Past Surgical History Reviewed Family History: FH: heart disease G8 FATHER Hypertension G8 FATHER Allergies: Coded Allergies: Iodine (Verified Allergy, Unknown, 12/19/24) Penicillins (Verified Allergy, Unknown, 12/19/24) Home Meds Active Scripts Cephalexin (KEFLEX CAPSULE) 250 Mg Cp, 500 MG PO BID for 10 Days, #20 CAP Prov:ANGEL GUTIERREZ RESIDENT 08/27/24 Current Medications Current Medications Medications (Trade) Dose Ordered Sig/Josefina Route PRN Reason Start Time Stop Time Status Last Admin Docusate Sodium (Colace Capsule) 100 mg DAILY PO 12/20/24 10:00 12/20/24 09:34 Diagnostic Test (Pha) (Accu-Chek Comfort Curve T) 1 strip ACHS 12/19/24 22:00 12/20/24 17:26 Insulin Human Regular (InsuLIN R) ACHS SC 12/19/24 22:00 12/20/24 17:28 Review of Systems 14 point ROS negative except mentioned in HPI Vital Signs Vital Signs Date Time Temp Pulse Resp B/P (MAP) Pulse Ox O2 Delivery O2 Flow Rate FiO2 12/20/24 16:34 98.3 82 17 131/72 (91) 96 98.3 12/20/24 08:29 Room Air* 0 21 Physical Exam GE - in no acute distress CVS - S1S2+ Lungs - clear Abdomen - soft, non-distended, non-tender, BS+ Labs/Diagnostic Data Labs Test 12/20/24 16:56 12/20/24 06:03 12/19/24 12:23 Range/Units POC Glucose 168 H 70-106 mg/dl White Blood Count 4.4 # 4.4-10.8 10^3/uL Red Blood Count 4.50 4.0-5.20 10^6/uL Hemoglobin 12.9 12.2-16.2 g/dL Hematocrit 39.4 36.0-46.0 % Mean Corpuscular Volume 87.5 80.0-100.0 fL Mean Corpuscular Hemoglobin 28.7 28.0-32.0 pg Mean Corpuscular Hemoglobin Concent 32.8 32.0-36.0 g/dL Red Cell Distribution Width 15.5 H 11.8-14.3 % Platelet Count 132 L 140-450 10^3/uL Mean Platelet Volume 9.4 6.9-10.8 fL Neutrophils (%) (Auto) 60.1 37.0-80.0 % Lymphocytes (%) (Auto) 25.5 10.0-50.0 % Monocytes (%) (Auto) 9.3 0.0-12.0 % Eosinophils (%) (Auto) 4.3 0.0-7.0 % Basophils (%) (Auto) 0.8 0.0-2.0 % Neutrophils # (Auto) 2.6 1.6-8.6 10 ^3/uL Lymphocytes # (Auto) 1.1 0.4-5.4 10 ^3/uL Monocytes # (Auto) 0.4 0-1.3 10 ^3/uL Eosinophils # (Auto) 0.2 0-0.8 10 ^3/uL Basophils # (Auto) 0 0-0.2 10 ^3/uL Nucleated Red Blood Cells 0.0 % Sodium Level 142 136-145 mmol/L Potassium Level 4.4 3.5-5.1 mmol/L Chloride Level 109 H 98-107 mmol/L Carbon Dioxide Level 24 20-31 mmol/L Anion Gap 9 5-15 Blood Urea Nitrogen 19 9-23 mg/dL Creatinine 0.75 0.550-1.02 mg/dL Glomerular Filtration Rate Calc 78 >90 mL/min BUN/Creatinine Ratio 25.3 H 10.0-20.0 Serum Glucose 90 74-106 mg/dL Hemoglobin A1c 5.9 H <5.7 % A1C Calcium Level 9.8 8.7-10.4 mg/dL Total Bilirubin 0.5 0.2-1.0 mg/dL Aspartate Amino Transferase (AST) 519 H 13-40 U/L Alanine Aminotransferase (ALT) 600 H 7-40 U/L Alkaline Phosphatase 193 H 46-116 U/L Troponin I High Sensitivity 4 </=34 ng/L Total Protein 6.2 5.7-8.2 g/dL Albumin 4.0 3.2-4.8 g/dL Triglycerides Level 121 < 150 mg/dL Cholesterol Level 120 < 200 mg/dL LDL Cholesterol 59 < 100 mg/dL HDL Cholesterol 44 40-59 mg/dL Thyroid Stimulating Hormone (TSH) 1.53 0.55-4.78 uIU/mL B-Type Natriuretic Peptide 39.26 0-100 pg/mL Lipase 409 H 12-53 U/L Acetaminophen Level 5.0 L 10.0-20.0 UG/ML Assessment #Elevated liver enzymes #Chest pain #CAD s/p PCI Plan/Recommendation -Acute hep panel results pend -Check LDH and CK, salicylate level, SANTO, smooth muscle Ab, mitochondrial Ab, LKM-1 Ab, ceruloplasmin, ferritin -Reviewed imaging studies, normal liver, GB and biliary tree -Avoid hepatotoxins and hypotension -Follow up in GI clinic as out pt, if liver enzymes continue to improve -Care plan discussed with pt and RN bedside Thank you for the consult Plan discussed with: Patient, Other GAMALIEL ARANA MD Dec 20, 2024 21:00
--- NOTE | 2024-12-20 22:42 | DVHPN2 ---
Subjective The patient is seen and examined at bedside. Still complain of chest pain. Reviewed: Care Plan, H&P, Labs, Medications, Previous Orders, Radiology Changes from previous H/P or p: No Changes Eyes: No Pain, No Vision change, No Conjunctivae inflammation, No Eyelid inflammation, No Other, No Redness ENT: No Ear pain, No Ear discharge, No Nose pain, No Nose discharge, No Nose congestion, No Mouth pain, No Mouth swelling, No Throat pain, No Throat swelling, No Other Cardiovascular: Chest Pain; No Palpitations, No Orthopnea, No Paroxysmal Noc. Dyspnea, No Edema, No Lt Headedness, No Other Respiratory: No Cough, No Dry; Shortness of breath; No SOB with excertion, No Wheezing, No Hemoptysis, No Pleuritic Pain, No Sputum, No Other Gastrointestinal: No Nausea, No Vomiting, No Abdominal Pain, No Diarrhea, No Constipation, No Melena, No Hematochezia, No Other Genitourinary: No Dysuria, No Frequency, No Incontinence, No Hematuria, No Retention, No Other Musculoskeletal: No other, No neck pain, No shoulder pain, No arm pain, No back pain, No hand pain, No leg pain, No foot pain Skin: No Rash, No Lesions, No Jaundice, No Bruising, No Other Objective Vitals Vital Signs Date Time Temp Pulse Resp B/P (MAP) Pulse Ox O2 Delivery O2 Flow Rate FiO2 12/20/24 21:00 97.9 83 18 135/78 (97) 93 97.9 12/20/24 20:00 Room Air* 0 21 Intake/Output Intake and Output 12/20/24 07:00 Intake Total 0 ml Balance 0 ml Intake Oral 0 ml # Voids 2 General Appearance: Alert, Cooperative HEENT: Atraumatic, PERRLA, EOMI, Mucous membr. moist/pink Neck: Supple Lungs: Clear to auscultation, Normal air movement Cardiovascular: Regular rate, Normal S1, Normal S2, No murmurs, Gallops, Rubs Abdomen: Normal bowel sounds, Soft, No tenderness Neuro: Cranial nerves 3-12 NL Psych/Mental Status: Mental status NL Medications Current Medications Medications Dose Ordered Sig/Josefina Route Start Time Stop Time Status Last Admin Dose Admin Aspirin 81 mg DAILY PO 12/19/24 14:51 12/20/24 09:34 81 MG Morphine Sulfate 2 mg Q30MP PRN IV 12/19/24 14:45 Docusate Sodium 100 mg DAILY PO 12/20/24 10:00 12/20/24 09:34 100 MG Ondansetron HCl 4 mg Q4HP PRN IV 12/19/24 14:45 Nitroglycerin 0.4 mg Q5MINP PRN SL 12/19/24 14:45 Diagnostic Test (Pha) 1 strip ACHS 12/19/24 22:00 12/20/24 22:13 1 STRIP Insulin Human Regular ACHS SC 12/19/24 22:00 12/20/24 22:17 2 UNITS Dextrose 50 ml UD PRN IV 12/19/24 18:15 Laboratory Results Laboratory Tests 12/20/24 06:03 Chemistry Test 12/20/24 06:03 Albumin 4.0 g/dL (3.2-4.8) Calcium Level 9.8 mg/dL (8.7-10.4) Total Protein 6.2 g/dL (5.7-8.2) Lipid panel Test 12/20/24 06:03 Cholesterol Level 120 mg/dL (< 200) HDL Cholesterol 44 mg/dL (40-59) Triglycerides Level 121 mg/dL (< 150) LFT Test 12/20/24 06:03 Alanine Aminotransferase (ALT) 600 U/L (7-40) H Alkaline Phosphatase 193 U/L (46-116) H Aspartate Amino Transferase (AST) 519 U/L (13-40) H Total Bilirubin 0.5 mg/dL (0.2-1.0) HgA1c, TSH Test 12/20/24 06:03 Hemoglobin A1c 5.9 % A1C (<5.7) H Thyroid Stimulating Hormone (TSH) 1.53 uIU/mL (0.55-4.78) Labs and/or images reviewed: Labs reviewed by me Assessment/Plan Assessment/Plan Chest pain syndrome Troponins negative x2 Recent cardiology stress test results 12/08/24 no ischemia noted Monitor telemetry Cardiology to follow (Dr. 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 This medical document was created using an electronic medical record system with [employer] direct computerized dictation system. Although this document has been carefully reviewed, there may still be some phonetic and typographical errors. These areas are purely typographical due to imperfections of the software programs, and do not reflect any compromise in the patient's medical care. Plan discussed with: Patient Date of Service: Dec 20, 2024 Billing Provider: ROGELIO GATES MD Common Visit Codes: [id number] INP/OBS CARE(HIGH) ROGELIO GATES MD Dec 20, 2024 22:42
[2024-12-21] VITALS (9 sets, daily range): BP systolic 121–152; BP diastolic 55–76; PULSE 79–100; RESP 16–18; TEMP 97.4–98.7; O2SAT 91–97
[2024-12-21] MEDS ORDERED: GLIP-110 PO (09:34)
[2024-12-21] MEDS ORDERED: ATOR20TA50 PO (09:34)
[2024-12-21] MEDS ORDERED: GABA300T4 PO (09:34)
[2024-12-21] MEDS ORDERED: LOSA-534 PO (09:34)
[2024-12-21] MEDS ORDERED: NIFE10CA52 PO (09:34)
[2024-12-21] MEDS ORDERED: CLOP75TA70 PO (09:34)
[2024-12-21 10:17] LABS: Hepatitis B Surface Antigen Negative (Negative)
[2024-12-21 10:38] LABS: Hepatitis C Antibody Negative (Negative)
--- NOTE | 2024-12-21 11:27 | DVHPN2 ---
Subjective The patient is seen and examined at bedside. Still complain of chest pain. Liver function test is improved. Reviewed: Care Plan, H&P, Labs, Medications, Previous Orders, Radiology Changes from previous H/P or p: No Changes Eyes: No Pain, No Vision change, No Conjunctivae inflammation, No Eyelid inflammation, No Other, No Redness ENT: No Ear pain, No Ear discharge, No Nose pain, No Nose discharge, No Nose congestion, No Mouth pain, No Mouth swelling, No Throat pain, No Throat swelling, No Other Cardiovascular: Chest Pain; No Palpitations, No Orthopnea, No Paroxysmal Noc. Dyspnea, No Edema, No Lt Headedness, No Other Respiratory: No Cough, No Dry; Shortness of breath; No SOB with excertion, No Wheezing, No Hemoptysis, No Pleuritic Pain, No Sputum, No Other Gastrointestinal: No Nausea, No Vomiting, No Abdominal Pain, No Diarrhea, No Constipation, No Melena, No Hematochezia, No Other Genitourinary: No Dysuria, No Frequency, No Incontinence, No Hematuria, No Retention, No Other Musculoskeletal: No other, No neck pain, No shoulder pain, No arm pain, No back pain, No hand pain, No leg pain, No foot pain Skin: No Rash, No Lesions, No Jaundice, No Bruising, No Other Objective Vitals Vital Signs Date Time Temp Pulse Resp B/P (MAP) Pulse Ox O2 Delivery O2 Flow Rate FiO2 12/21/24 08:46 97.4 89 17 145/75 (98) 91 97.4 12/21/24 08:00 Room Air* 0 21 Intake/Output Intake and Output 12/21/24 07:00 Intake Total 675 ml Balance 675 ml Intake Oral 675 ml # Voids 7 # Bowel Movements 1 General Appearance: Alert, Cooperative HEENT: Atraumatic, PERRLA, EOMI, Mucous membr. moist/pink Neck: Supple Lungs: Clear to auscultation, Normal air movement Cardiovascular: Regular rate, Normal S1, Normal S2, No murmurs, Gallops, Rubs Abdomen: Normal bowel sounds, Soft, No tenderness Neuro: Cranial nerves 3-12 NL Psych/Mental Status: Mental status NL Medications Current Medications Medications Dose Ordered Sig/Josefina Route Start Time Stop Time Status Last Admin Dose Admin Aspirin 81 mg DAILY PO 12/19/24 14:51 12/21/24 09:50 81 MG Morphine Sulfate 2 mg Q30MP PRN IV 12/19/24 14:45 Docusate Sodium 100 mg DAILY PO 12/20/24 10:00 12/21/24 09:50 100 MG Ondansetron HCl 4 mg Q4HP PRN IV 12/19/24 14:45 Nitroglycerin 0.4 mg Q5MINP PRN SL 12/19/24 14:45 Diagnostic Test (Pha) 1 strip ACHS 12/19/24 22:00 12/21/24 06:07 1 STRIP Insulin Human Regular ACHS SC 12/19/24 22:00 12/21/24 06:08 3 UNITS Dextrose 50 ml UD PRN IV 12/19/24 18:15 Laboratory Results Chemistry Test 12/21/24 11:00 Albumin Pending Calcium Level Pending Total Protein Pending LFT Test 12/21/24 11:00 Alanine Aminotransferase (ALT) Pending Alkaline Phosphatase Pending Aspartate Amino Transferase (AST) Pending Direct Bilirubin Pending Total Bilirubin Pending Labs and/or images reviewed: Labs reviewed by me Assessment/Plan Assessment/Plan Chest pain syndrome Troponins negative x2 Recent cardiology stress test results 12/08/24 no ischemia noted Monitor telemetry Cardiology to follow (Dr. Short) Consider echo if not recent Monitor for recurrent symptoms Acute transaminitis AST 1097, ALT 568, bili 0.9 Review medications for hepatotoxic agents hold lipitor for now Hepatitis panel, acetaminophen level, PT/INR, and abdominal ultrasound ordered Hold any hepatotoxic medications Appreciated GI input. Will follow up LDH and CK, salicylate level, SANTO, smooth muscle Ab, mitochondrial Ab, LKM-1 Ab, ceruloplasmin, ferritin -Reviewed imaging studies: normal liver, GB and biliary tree -Avoid hepatotoxins and hypotension Will follow up with hepatitis panel. Hypertension Continue home regimen Monitor BP during hospitalization Type 2 Diabetes Mellitus Check daily FSBS Monitor for signs of DKA/HHS if symptomatic Anemia CBC unremarkable on admission Recent carotid artery RECREATION THERAPY AIDE/stent, stable Continuing current management. This medical document was created using an electronic medical record system with [employer] direct computerized dictation system. Although this document has been carefully reviewed, there may still be some phonetic and typographical errors. These areas are purely typographical due to imperfections of the software programs, and do not reflect any compromise in the patient's medical care. Plan discussed with: Patient My Orders Orders - ROGELIO GATES MD Procedure Category Date Status Time Complete Blood Count LAB 12/21/24 In Process 08:25 Basic Metabolic Panel LAB 12/21/24 In Process 08:25 Hepatic Panel LAB 12/21/24 In Process 08:25 Date of Service: Dec 21, 2024 Billing Provider: ROGELIO GATES MD Common Visit Codes: [id number] INP/OBS CARE(HIGH) ROGELIO GATES MD Dec 21, 2024 11:27
[2024-12-21 11:36] LABS: Hematocrit 37.6 % (36.0-46.0); Hemoglobin 12.5 g/dL (12.2-16.2); Mean Corpuscular Hemoglobin 28.6 pg (28.0-32.0); Mean Corpuscular Volume 85.8 fL (80.0-100.0); Nucleated Red Blood Cells % 0.0 %
[2024-12-21 11:46] LABS: Albumin 4.1 g/dL (3.2-4.8); Anion Gap 9 (5-15); BUN/Creatinine Ratio 26.5 (10.0-20.0); Bilirubin, Direct 0.1 mg/dL (<0.3); Bilirubin, Total 0.3 mg/dL (0.2-1.0); Blood Urea Nitrogen 22 mg/dL (9-23); Calcium 10.0 mg/dL (8.7-10.4); Carbon Dioxide 26 mmol/L (20-31); Chloride 106 mmol/L (98-107); Potassium 4.2 mmol/L (3.5-5.1); Sodium 141 mmol/L (136-145); Total Protein 6.2 g/dL (5.7-8.2)
[2024-12-21 11:48] LABS: Alanine Aminotransferase 360 U/L (7-40); Alkaline Phosphatase 148 U/L (46-116); Glucose 158 mg/dL (74-106)
[2024-12-21] MEDS: CLOPIDOGREL BISULFATE 75 MG TAB PO ONE (14:08)
--- NOTE | 2024-12-21 23:10 | DVHPN2 ---
Progress Note - Dictate Date Seen: Dec 21, 2024 Medical Necessity Reason Pt with a Central, PICC or Fol: No Subjective Patient complaining of chest pain ongoing There was no nausea vomiting or GERD Patient had elevation in liver enzymes which are trending down possibly related to hypoxic liver injury vital signs Vital Sign Date Time Temp Pulse Resp B/P (MAP) Pulse Ox O2 Delivery O2 Flow Rate FiO2 12/21/24 21:00 98.7 79 16 140/59 (86) 96 98.7 12/21/24 20:00 Room Air* 0 21 Total Intake and Output 12/20/24 12/20/24 12/21/24 15:00 23:00 07:00 Intake Total 525 ml 150 ml Balance 525 ml 150 ml medications Current Medications Medications Dose Ordered Sig/Josefina Route Start Time Stop Time Status Last Admin Dose Admin Aspirin 81 mg DAILY PO 12/19/24 14:51 12/21/24 09:50 81 MG Morphine Sulfate 2 mg Q30MP PRN IV 12/19/24 14:45 Docusate Sodium 100 mg DAILY PO 12/20/24 10:00 12/21/24 09:50 100 MG Ondansetron HCl 4 mg Q4HP PRN IV 12/19/24 14:45 Nitroglycerin 0.4 mg Q5MINP PRN SL 12/19/24 14:45 Diagnostic Test (Pha) 1 strip ACHS 12/19/24 22:00 12/21/24 17:03 1 STRIP Insulin Human Regular ACHS SC 12/19/24 22:00 12/21/24 17:04 3 UNITS Dextrose 50 ml UD PRN IV 12/19/24 18:15 Clopidogrel Bisulfate 75 mg DAILY PO 12/22/24 10:00 objective GE - in no acute distress CVS - S1S2+ Lungs - clear Abdomen - soft, non-distended, non-tender, BS+ laboratory and microbiology Laboratory Tests 12/21/24 11:00 Test 12/21/24 11:00 Range/Units Serum Glucose 158 H 74-106 mg/dL Problems(with codes): (1) Elevated LFTs (2) Chest pain (3) Acute pancreatitis (4) Sepsis due to urinary tract infection (5) Hyperglycemia Prognosis Plan Possible just pain elevated liver enzymes mild pancreatitis due to passage of sludge or stone There was no evidence of residual stone and her liver enzymes are trending down Continue to monitor labs including her lipase in a.m. I will follow up patient with you Plan discussed with: Patient SALENA ASHLEY MD Dec 21, 2024 23:10
[2024-12-22 01:02] VITALS: BP 127/64; PULSE 87; RESP 14; TEMP 98.4; O2SAT 97
[2024-12-22 05:00] VITALS: BP 110/53; PULSE 84; RESP 16; TEMP 98.2; O2SAT 94
[2024-12-22 06:27] LABS: Hematocrit 36.7 % (36.0-46.0); Hemoglobin 12.8 g/dL (12.2-16.2); Mean Corpuscular Hemoglobin 29.7 pg (28.0-32.0); Mean Corpuscular Volume 85.2 fL (80.0-100.0); Nucleated Red Blood Cells % 0.1 %
[2024-12-22 06:44] LABS: Albumin 4.0 g/dL (3.2-4.8); Anion Gap 9 (5-15); BUN/Creatinine Ratio 25.6 (10.0-20.0); Blood Urea Nitrogen 22 mg/dL (9-23); Calcium 10.2 mg/dL (8.7-10.4); Carbon Dioxide 27 mmol/L (20-31); Chloride 106 mmol/L (98-107); Potassium 4.1 mmol/L (3.5-5.1); Sodium 142 mmol/L (136-145); Total Protein 6.3 g/dL (5.7-8.2)
[2024-12-22 06:45] LABS: Bilirubin, Direct 0.1 mg/dL (<0.3); Bilirubin, Total 0.3 mg/dL (0.2-1.0)
[2024-12-22 06:46] LABS: Alanine Aminotransferase 273 U/L (7-40); Alkaline Phosphatase 136 U/L (46-116); Glucose 139 mg/dL (74-106)
[2024-12-22 07:01] LABS: Lipase 52 U/L (12-53)
[2024-12-22 08:00] VITALS: PULSE 82
[2024-12-22 08:49] VITALS: BP 121/65; PULSE 87; RESP 19; TEMP 97.7; O2SAT 93
[2024-12-22] MEDS: CLOPIDOGREL BISULFATE 75 MG TAB PO SCH (09:49)
--- NOTE | 2024-12-22 11:32 | DVHDS2 ---
Discharge Summary Date of Admission Dec 19, 2024 at 14:37 Date of Discharge: Dec 22, 2024 Labs/Diagnostic Data: Laboratory Results Test 12/22/24 11:08 12/22/24 05:34 12/20/24 06:03 12/19/24 12:23 POC Glucose 211 mg/dl (70-106) White Blood Count 5.6 10^3/uL (4.4-10.8) Red Blood Count 4.31 10^6/uL (4.0-5.20) Hemoglobin 12.8 g/dL (12.2-16.2) Hematocrit 36.7 % (36.0-46.0) Mean Corpuscular Volume 85.2 fL (80.0-100.0) Mean Corpuscular Hemoglobin 29.7 pg (28.0-32.0) Mean Corpuscular Hemoglobin Concent 34.9 g/dL (32.0-36.0) Red Cell Distribution Width 15.1 % (11.8-14.3) Platelet Count 146 10^3/uL (140-450) Mean Platelet Volume 9.6 fL (6.9-10.8) Neutrophils (%) (Auto) 58.2 % (37.0-80.0) Lymphocytes (%) (Auto) 27.1 % (10.0-50.0) Monocytes (%) (Auto) 10.9 % (0.0-12.0) Eosinophils (%) (Auto) 3.1 % (0.0-7.0) Basophils (%) (Auto) 0.7 % (0.0-2.0) Neutrophils # (Auto) 3.3 10 ^3/uL (1.6-8.6) Lymphocytes # (Auto) 1.5 10 ^3/uL (0.4-5.4) Monocytes # (Auto) 0.6 10 ^3/uL (0-1.3) Eosinophils # (Auto) 0.2 10 ^3/uL (0-0.8) Basophils # (Auto) 0 10 ^3/uL (0-0.2) Nucleated Red Blood Cells 0.1 % Sodium Level 142 mmol/L (136-145) Potassium Level 4.1 mmol/L (3.5-5.1) Chloride Level 106 mmol/L (98-107) Carbon Dioxide Level 27 mmol/L (20-31) Anion Gap 9 (5-15) Blood Urea Nitrogen 22 mg/dL (9-23) Creatinine 0.86 mg/dL (0.550-1.02) Glomerular Filtration Rate Calc 67 mL/min (>90) BUN/Creatinine Ratio 25.6 (10.0-20.0) Serum Glucose 139 mg/dL (74-106) Calcium Level 10.2 mg/dL (8.7-10.4) Total Bilirubin 0.3 mg/dL (0.2-1.0) Direct Bilirubin 0.1 mg/dL (<0.3) Aspartate Amino Transferase (AST) 90 U/L (13-40) Alanine Aminotransferase (ALT) 273 U/L (7-40) Alkaline Phosphatase 136 U/L (46-116) Total Protein 6.3 g/dL (5.7-8.2) Albumin 4.0 g/dL (3.2-4.8) Lipase 52 U/L (12-53) Hemoglobin A1c 5.9 % A1C (<5.7) Troponin I High Sensitivity 4 ng/L (</=34) Triglycerides Level 121 mg/dL (< 150) Cholesterol Level 120 mg/dL (< 200) LDL Cholesterol 59 mg/dL (< 100) HDL Cholesterol 44 mg/dL (40-59) Thyroid Stimulating Hormone (TSH) 1.53 uIU/mL (0.55-4.78) B-Type Natriuretic Peptide 39.26 pg/mL (0-100) Acetaminophen Level 5.0 UG/ML (10.0-20.0) Hepatitis A IgM Antibody Negative Hepatitis B Surface Antigen Negative (Negative) Hepatitis B Core IgM Antibody Negative (Negative) Hepatitis C Antibody Negative (Negative) Other Laboratory Tests 12/22/24 05:34 Final Diagnosis/Problems List elevation of liver function test, chest pain Discharge Disposition: Home Discharge Instruct/Medications Diet: Cardiac 2g Na,low cholest Activity: No Restrictions, As Tolerated Follow Up/Referral: pcp 1-2 weeks Medications: resume home meds stop statin Scheduled Atorvastatin Calcium (Atorvastatin Calcium), 20 MG PO DAILY, (Reported) Cephalexin (Keflex Capsule), 500 MG PO BID Clopidogrel Bisulfate (Clopidogrel), 75 MG PO DAILY, (Reported) Gabapentin (Once-Daily) (Gabapentin), 100 MG PO DAILY, (Reported) Glipizide (Glipizide Er), 5 MG PO DAILY, (Reported) Losartan Potassium (Losartan Potassium), 50 MG PO DAILY, (Reported) Miscellaneous Medications Nifedipine (Procardia Capsule), 60 MG PO, (Reported) Discharge Statement: "Patient was advised to return to the ER or call 911 if any headaches, dizziness, shortness of breath, chest pain, abdominal pain, bleeding, fevers, or worsening of medical condition. Patient was counseled about treatment plan, medications, possible side effects, patientverbalized understanding. All questions were answered to the best of my ability. This discharge took greater then 30 minutes in planning, reviewing documentation, counseling the patient, and discussing with other team members." ASSESSMENT ASSESSMENT Assessment elevation of liver function test, chest pain ROGELIO GATES MD Dec 22, 2024 11:32
--- NOTE | 2024-12-22 15:36 | DVHPN2 ---
Progress Note - Dictate Date Seen: Dec 22, 2024 (Late entry Time of visit 1:00 p.m.) Medical Necessity Reason Pt with a Central, PICC or Fol: No Subjective pt is feeling better There was no nausea vomiting or GERD Patient had elevation in liver enzymes which are trending down( possibly related to hypoxic liver injury) Lipase level has normalized vital signs Vital Sign Date Time Temp Pulse Resp B/P (MAP) Pulse Ox O2 Delivery O2 Flow Rate FiO2 12/22/24 08:49 97.7 87 19 121/65 (83) 93 97.7 12/22/24 08:00 Room Air* 0 21 Total Intake and Output 12/21/24 12/21/24 12/22/24 15:00 23:00 07:00 Intake Total 820 ml 520 ml Output Total 2 ml Balance 820 ml 518 ml objective GE - in no acute distress CVS - S1S2+ Lungs - clear Abdomen - soft, non-distended, non-tender, BS+ laboratory and microbiology Laboratory Tests 12/22/24 05:34 Test 12/22/24 05:34 Range/Units Serum Glucose 139 H 74-106 mg/dL Problems(with codes): (1) Sepsis due to urinary tract infection (2) Hyperglycemia (3) Elevated LFTs (4) Chest pain (5) Acute pancreatitis Prognosis Plan Possible chest pain and elevated liver enzymes mild pancreatitis due to passage of sludge or stone There was no evidence of residual stone and her liver enzymes are trending down; lipase is normal Discharge planning is in progress, advance diet as tolerated Outpatient follow up with GI Services as needed Dietary Evaluation Review Comments: [id number]-60 Cardiac diet controlled blood sugar Expected Outcomes/Goals: controlled DM, gradual wt loss Plan discussed with: Patient SALENA ASHLEY MD Dec 22, 2024 15:36
== END 2024-12-22 14:17 | disposition home or self-care (01) | DRG 313 ==
LOC: ER 11:57 → EDBD 11:57 → OVERFLOW 14:37 → TELE-CENTR 16:45
PROVIDERS: ADMIT Internal Medicine; ATTEND Internal Medicine
DX: R07.89 Other chest pain (principal); K85.90 Acute pancreatitis without necrosis or infection, unspecified; I10 Essential (primary) hypertension; R74.01 Elevation of levels of liver transaminase levels; E11.9 Type 2 diabetes mellitus without complications; D64.9 Anemia, unspecified; E78.5 Hyperlipidemia, unspecified; R79.89 Other specified abnormal findings of blood chemistry; I25.10 Atherosclerotic heart disease of native coronary artery without angina pectoris; Z98.61 Coronary angioplasty status; Z88.0 Allergy status to penicillin; Z86.73 Personal history of transient ischemic attack (TIA), and cerebral infarction without residual deficits; Z82.49 Family history of ischemic heart disease and other diseases of the circulatory system; Z79.899 Other long term (current) drug therapy
CPT/HCPCS: 36415; 71045; 74176; 76705; 80048; 80053; 80061; 80074; 80076; 80329; 82962; 83036; 83690; 83880; 84443; 84484; 85025; 93005; 93306; 99291; G0378; J1815